=== PATIENT | male | born 1930 | race Caucasian/White ===

== ENCOUNTER → 2017-03-30 | Outpatient (REF) | payer MEDICARE, OTHER ==
[~2017-03-30] MED LIST: LISI20TA PO; METF500T PO; TIMO25OPD OD
[2017-03-30 12:29] LABS: MEAN CORPUSCULAR HEMOGLOBIN 33.3 pg (27.0-33.0); MEAN CORPUSCULAR HGB CONC 33.4 g/dl (32.0-36.5); MEAN CORPUSCULAR VOLUME 99.7 fl (80.0-96.0); RED CELL DISTRIBUTION WIDTH 12.3 % (11.5-14.5); WHITE BLOOD COUNT 7.4 K/mm3 (4.0-10.0)
[2017-03-30 12:40] LABS: ALBUMIN 3.5 GM/DL (3.2-5.2); ALBUMIN/GLOBULIN RATIO 1.25 (1.00-1.93); ALKALINE PHOSPHATASE 55 U/L (45-117); ALT/SGPT 15 U/L (12-78); ANION GAP 9 MEQ/L (8-16); AST/SGOT 12 U/L (15-37); BILIRUBIN,TOTAL 1.2 MG/DL (0.2-1.0); BLOOD UREA NITROGEN 23 MG/DL (7-18); CALCIUM LEVEL 9.1 MG/DL (8.8-10.2); CARBON DIOXIDE LEVEL 28 MEQ/L (21-32); CHLORIDE LEVEL 105 MEQ/L (98-107); CHOLESTEROL LEVEL 188 MG/DL (<200); CREATININE FOR GFR 1.07 MG/DL (0.70-1.30); GLOMERULAR FILTRATION RATE > 60.0 (>35); GLUCOSE, FASTING 132 MG/DL (83-110); POTASSIUM SERUM 3.9 MEQ/L (3.5-5.1); SODIUM LEVEL 142 MEQ/L (136-145); TOTAL PROTEIN 6.3 GM/DL (6.4-8.2); TRIGLYCERIDES LEVEL 122 MG/DL (<150)
== END ==
LOC: M SFHCPLAZ 08:26
PROVIDERS: ATTEND Internal Medicine
DX: Z86.010 Personal history of colon polyps (principal); E11.9 Type 2 diabetes mellitus without complications

== ENCOUNTER → 2017-10-05 | Outpatient (REF) | payer MEDICARE, OTHER ==
[~2017-10-05] MED LIST changes: -METF500T PO; +METF500T13 PO
[2017-10-05 12:33] LABS: ALBUMIN 3.3 GM/DL (3.2-5.2); ALBUMIN/GLOBULIN RATIO 1.03 (1.00-1.93); ALKALINE PHOSPHATASE 63 U/L (45-117); ALT/SGPT 16 U/L (12-78); ANION GAP 5 MEQ/L (8-16); AST/SGOT 12 U/L (7-37); BILIRUBIN,TOTAL 0.9 MG/DL (0.2-1.0); BLOOD UREA NITROGEN 26 MG/DL (7-18); CALCIUM LEVEL 9.4 MG/DL (8.8-10.2); CARBON DIOXIDE LEVEL 32 MEQ/L (21-32); CHLORIDE LEVEL 104 MEQ/L (98-107); CHOLESTEROL LEVEL 175 MG/DL (<200); CREATININE FOR GFR 0.97 MG/DL (0.70-1.30); GLOMERULAR FILTRATION RATE > 60.0 (>35); GLUCOSE, FASTING 137 MG/DL (83-110); MAGNESIUM LEVEL 1.7 MG/DL (1.8-2.4); POTASSIUM SERUM 4.1 MEQ/L (3.5-5.1); SODIUM LEVEL 141 MEQ/L (136-145); TOTAL PROTEIN 6.5 GM/DL (6.4-8.2); TRIGLYCERIDES LEVEL 104 MG/DL (<150)
[2017-10-05 12:36] LABS: MEAN CORPUSCULAR HEMOGLOBIN 32.5 pg (27.0-33.0); MEAN CORPUSCULAR HGB CONC 32.8 g/dl (32.0-36.5); PLATELET COUNT, AUTOMATED 294 10^3/uL (150-450); RED CELL DISTRIBUTION WIDTH 11.8 % (11.5-14.5); WHITE BLOOD COUNT 8.6 10^3/uL (4.0-10.0)
== END ==
LOC: M SFHCPLAZ 09:59
PROVIDERS: ATTEND Internal Medicine
DX: E11.9 Type 2 diabetes mellitus without complications (principal); I10 Essential (primary) hypertension; Z86.010 Personal history of colon polyps

== ENCOUNTER 2018-03-22 15:47 | Inpatient (IN) | payer MEDICARE, OTHER ==
[2018-03-22 16:41] LABS: BASO # 0.1 10^3/uL (0.0-0.2); BASO % 0.4 % (0.0-1.0); EOS # 0.1 10^3/uL (0.0-0.50); EOS % 0.4 % (0.0-3.0); HEMATOCRIT 36.5 % (42.0-52.0); HEMOGLOBIN 12.8 g/dl (13.5-17.5); LYMPH # 0.8 10^3/uL (1.5-4.5); LYMPH % 6.2 % (24.0-44.0); MEAN CORPUSCULAR HEMOGLOBIN 31.7 pg (27.0-33.0); MEAN CORPUSCULAR HGB CONC 35.1 g/dl (32.0-36.5); MEAN CORPUSCULAR VOLUME 90.3 fl (80.0-96.0); MONO # 0.8 10^3/uL (0.0-0.8); MONO % 5.6 % (0.0-5.0); NEUTROPHILS # 11.4 10^3/uL (1.8-7.7); NEUTROPHILS % 83.4 % (36.0-66.0); PLATELET COUNT, AUTOMATED 357 10^3/uL (150-450); RED BLOOD COUNT 4.04 10^6/uL (4.30-6.10); WHITE BLOOD COUNT 13.6 10^3/uL (4.0-10.0)
[2018-03-22 16:53] LABS: PROTHROMBIN TIME 13.3 SECONDS (12.4-14.5)
[2018-03-22 17:11] LABS: ANION GAP 11 MEQ/L (8-16); BLOOD UREA NITROGEN 37 MG/DL (7-18); CALCIUM LEVEL 9.9 MG/DL (8.8-10.2); CARBON DIOXIDE LEVEL 28 MEQ/L (21-32); CHLORIDE LEVEL 95 MEQ/L (98-107); CPK CREATINE PHOSPHOKINASE 59 U/L (39-308); CREATININE FOR GFR 1.57 MG/DL (0.70-1.30); GLOMERULAR FILTRATION RATE 44.6 (>35); GLUCOSE, FASTING 296 MG/DL (70-100); MAGNESIUM LEVEL 1.8 MG/DL (1.8-2.4); POTASSIUM SERUM 4.9 MEQ/L (3.5-5.1); SODIUM LEVEL 134 MEQ/L (136-145); TROPONIN I < 0.02 NG/ML (< 0.10)
[2018-03-22 17:17] LABS: CK-MB VALUE MASS 1.9 NG/ML (<3.6); MB/CK RELATIVE INDEX 3.22 (< OR =4)
[2018-03-22] MEDS: ALBUTEROL SULFATE 2.5 MG/0.5 ML INH NEB SOLN INH (17:36)
[2018-03-22] MEDS: IPRATROPIUM 0.5MG/ALBUTEROL 2.5MG INH SOL UD 3ML (DUONEB)(J7620) NEB (17:36)
[2018-03-22 17:47] LABS: ABG BASE EXCESS 4.2 (-2.0-2.0); ABG HCO3 27.8 MEQ/L (22.0-26.0); ABG O2 SATURATION 97.2 % (95.0-99.0); ABG PARTIAL PRESSURE O2 92.8 mmHg (75.0-100.0); ABG STANDARD HCO3 28.2 MEQ/L (22.0-26.0); ABG pH (ARTERIAL) 7.482 UNITS (7.350-7.450)
[2018-03-22] MEDS ORDERED: ISOVUE-370 76% 100ML VIAL (Q9967) As Ordered (18:00)
[2018-03-22] MEDS: ADACEL/BOOSTRIX VACCINE (DIPHTH/PERTUSS/ACELL/TETANUS)0.5ML SYR (90715) IM (18:33)
[2018-03-22] MEDS: NS 1,000 ML IV ×2 (18:34→22:53)
[2018-03-22 20:38] LABS: LACTIC ACID SEPSIS PROTOCOL 1.7 MMOL/L (0.4-2.0)
[2018-03-22 21:00] LABS: PSA SCREENING 6.94 NG/ML (< 4.0)
[2018-03-22] MEDS ORDERED: ACETAMINOPHEN TAB 650MG DOSE (2X325MG) PO (21:00)
[2018-03-22] MEDS: SENOKOT S TAB PO (21:00)
[2018-03-22] MEDS ORDERED: ONDANSETRON 4MG/2ML VIAL (J2405) IV (21:00)
[2018-03-22 23:19] LABS: BEDSIDE GLUCOSE 223 MG/DL (83-110)
[2018-03-23] MEDS: NS 1,000 ML IV ×2 (01:02→12:19)
[2018-03-23] MEDS ORDERED: GLUCAGON FOR INJ 1 MG VIAL (J1610) SC (01:15)
[2018-03-23] MEDS ORDERED: DEXTROSE 50% 50 ML SYRINGE IV (01:15)
[2018-03-23] MEDS ORDERED: GLUCOSE 4 GM CHEW TABLET PO (01:15)
[2018-03-23 02:31] LABS: CPK CREATINE PHOSPHOKINASE 40 U/L (39-308); TROPONIN I < 0.02 NG/ML (< 0.10)
[2018-03-23 02:32] LABS: CK-MB VALUE MASS 1.6 NG/ML (<3.6)
[2018-03-23 07:02] LABS: BEDSIDE GLUCOSE 213 MG/DL (83-110)
[2018-03-23] MEDS: amLODIPine 5 MG TAB PO (08:01)
[2018-03-23] MEDS: SENOKOT S TAB PO ×2 (08:01→20:45)
[2018-03-23] MEDS: HEPARIN SOD (PORCINE) 5000 UNITS/ML VIAL SC ×2 (08:02→20:49)
[2018-03-23] MEDS: HumaLOG INSULIN (NovoLOG) PER UNIT SC ×4 (08:02→20:45)
[2018-03-23 11:39] LABS: BEDSIDE GLUCOSE 187 MG/DL (83-110)
[2018-03-23 13:54] LABS: HEMOGLOBIN 12.5 g/dl (13.5-17.5); MEAN CORPUSCULAR HGB CONC 33.8 g/dl (32.0-36.5); MEAN CORPUSCULAR VOLUME 94.6 fl (80.0-96.0); PLATELET COUNT, AUTOMATED 327 10^3/uL (150-450); RED BLOOD COUNT 3.91 10^6/uL (4.30-6.10); RED CELL DISTRIBUTION WIDTH 12.5 % (11.5-14.5); WHITE BLOOD COUNT 13.1 10^3/uL (4.0-10.0)
[2018-03-23 14:14] LABS: ANION GAP 8 MEQ/L (8-16); BLOOD UREA NITROGEN 26 MG/DL (7-18); CALCIUM LEVEL 8.8 MG/DL (8.8-10.2); CARBON DIOXIDE LEVEL 30 MEQ/L (21-32); CHLORIDE LEVEL 102 MEQ/L (98-107); CREATININE FOR GFR 1.17 MG/DL (0.70-1.30); GLOMERULAR FILTRATION RATE > 60.0 (>35); GLUCOSE, FASTING 175 MG/DL (70-100); POTASSIUM SERUM 4.2 MEQ/L (3.5-5.1); SODIUM LEVEL 140 MEQ/L (136-145)
[2018-03-23 17:29] LABS: BEDSIDE GLUCOSE 179 MG/DL (83-110)
[2018-03-23 22:23] LABS: BEDSIDE GLUCOSE 186 MG/DL (83-110)
[2018-03-24] MEDS: NS 1,000 ML IV (00:10)
[2018-03-24 06:17] LABS: HEMATOCRIT 30.3 % (42.0-52.0); MEAN CORPUSCULAR HGB CONC 34.3 g/dl (32.0-36.5); MEAN CORPUSCULAR VOLUME 93.2 fl (80.0-96.0); PLATELET COUNT, AUTOMATED 228 10^3/uL (150-450); RED BLOOD COUNT 3.25 10^6/uL (4.30-6.10); RED CELL DISTRIBUTION WIDTH 12.6 % (11.5-14.5); WHITE BLOOD COUNT 8.7 10^3/uL (4.0-10.0)
[2018-03-24 06:28] LABS: ALBUMIN 2.3 GM/DL (3.2-5.2); ANION GAP 6 MEQ/L (8-16); BLOOD UREA NITROGEN 22 MG/DL (7-18); CARBON DIOXIDE LEVEL 28 MEQ/L (21-32); CHLORIDE LEVEL 107 MEQ/L (98-107); CREATININE FOR GFR 0.95 MG/DL (0.70-1.30); GLOMERULAR FILTRATION RATE > 60.0 (>35); GLUCOSE, FASTING 164 MG/DL (70-100); PHOSPHORUS LEVEL 2.8 MG/DL (2.5-4.9); POTASSIUM SERUM 3.7 MEQ/L (3.5-5.1); SODIUM LEVEL 141 MEQ/L (136-145)
[2018-03-24 06:32] LABS: HEMOGLOBIN 10.4 g/dl (13.5-17.5)
[2018-03-24] MEDS: amLODIPine 5 MG TAB PO (08:34)
[2018-03-24] MEDS: HumaLOG INSULIN (NovoLOG) PER UNIT SC ×4 (08:35→20:34)
[2018-03-24] MEDS: HEPARIN SOD (PORCINE) 5000 UNITS/ML VIAL SC ×2 (08:35→20:40)
[2018-03-24] MEDS: SENOKOT S TAB PO ×2 (08:36→20:38)
[2018-03-24] MEDS: LISINOPRIL 20 MG TAB PO (12:24)
[2018-03-24] MEDS: hydroCHLOROthiazide 12.5 MG CAPSULE PO (12:24)
[2018-03-24 12:53] LABS: BEDSIDE GLUCOSE 202 MG/DL (83-110)
[2018-03-24 16:58] LABS: BEDSIDE GLUCOSE 247 MG/DL (83-110)
[2018-03-25 05:54] LABS: HEMATOCRIT 32.1 % (42.0-52.0); HEMOGLOBIN 10.8 g/dl (13.5-17.5); MEAN CORPUSCULAR HEMOGLOBIN 31.4 pg (27.0-33.0); MEAN CORPUSCULAR HGB CONC 33.6 g/dl (32.0-36.5); MEAN CORPUSCULAR VOLUME 93.3 fl (80.0-96.0); PLATELET COUNT, AUTOMATED 216 10^3/uL (150-450); RED BLOOD COUNT 3.44 10^6/uL (4.30-6.10); RED CELL DISTRIBUTION WIDTH 12.5 % (11.5-14.5); WHITE BLOOD COUNT 8.6 10^3/uL (4.0-10.0)
[2018-03-25 06:12] LABS: ALBUMIN 2.3 GM/DL (3.2-5.2); ANION GAP 5 MEQ/L (8-16); BLOOD UREA NITROGEN 17 MG/DL (7-18); CALCIUM LEVEL 8.4 MG/DL (8.8-10.2); CARBON DIOXIDE LEVEL 29 MEQ/L (21-32); CHLORIDE LEVEL 108 MEQ/L (98-107); GLOMERULAR FILTRATION RATE > 60.0 (>35); GLUCOSE, FASTING 138 MG/DL (70-100); PHOSPHORUS LEVEL 2.9 MG/DL (2.5-4.9); POTASSIUM SERUM 3.8 MEQ/L (3.5-5.1); SODIUM LEVEL 142 MEQ/L (136-145)
[2018-03-25] MEDS: HumaLOG INSULIN (NovoLOG) PER UNIT SC ×2 (07:30→12:04)
[2018-03-25] MEDS: LISINOPRIL 10 MG TAB PO (08:28)
[2018-03-25] MEDS: amLODIPine 5 MG TAB PO (08:28)
[2018-03-25] MEDS: SENOKOT S TAB PO (08:28)
[2018-03-25] MEDS: HEPARIN SOD (PORCINE) 5000 UNITS/ML VIAL SC (08:29)
[2018-03-25 11:43] LABS: BEDSIDE GLUCOSE 302 MG/DL (83-110)
[2018-03-25] MEDS: hydroCHLOROthiazide 12.5 MG CAPSULE PO (12:03)
[2018-03-25 14:24] LABS: BEDSIDE GLUCOSE 257 MG/DL (83-110)
[2018-03-27 10:53] LABS: BEDSIDE GLUCOSE 144 MG/DL (83-110)
== END 2018-03-25 15:48 | disposition home or self-care (01) | DRG 684 ==
LOC: M ED 15:47 → M ED INP 20:59 → M MSPAV 22:04
PROVIDERS: Internal Medicine Nephrology
DX: N17.9 Acute kidney failure, unspecified (principal); I10 Essential (primary) hypertension; E04.1 Nontoxic single thyroid nodule; J61 Pneumoconiosis due to asbestos and other mineral fibers; K80.20 Calculus of gallbladder without cholecystitis without obstruction; F43.21 Adjustment disorder with depressed mood; R53.1 Weakness; E11.9 Type 2 diabetes mellitus without complications; Z85.828 Personal history of other malignant neoplasm of skin; Z85.51 Personal history of malignant neoplasm of bladder; Z98.49 Cataract extraction status, unspecified eye; Z87.891 Personal history of nicotine dependence; Z79.899 Other long term (current) drug therapy; Z79.84 Long term (current) use of oral hypoglycemic drugs

== ENCOUNTER → 2018-08-03 | Outpatient (CLI) | payer MEDICARE, OTHER | LOC: M RAD 13:09 | DX: J92.9 Pleural plaque without asbestos (principal) | CPT/HCPCS: 71250 ==

== ENCOUNTER → 2019-01-24 | Outpatient (REF) | payer MEDICARE, OTHER ==
[~2019-01-24] MED LIST changes: +COMB0.2S OD; +LIDO1PAD TOP; +LISI10TA2 PO; +PRED10TA2 PO; +TUMS500C PO; +VITA-121 PO
[2019-01-24 12:48] LABS: HEMATOCRIT 39.9 % (42.0-52.0); HEMOGLOBIN 12.9 g/dl (13.5-17.5); MEAN CORPUSCULAR HEMOGLOBIN 32.6 pg (27.0-33.0); MEAN CORPUSCULAR HGB CONC 32.3 g/dl (32.0-36.5); MEAN CORPUSCULAR VOLUME 100.8 fl (80.0-96.0); PLATELET COUNT, AUTOMATED 244 10^3/uL (150-450); RED BLOOD COUNT 3.96 10^6/uL (4.30-6.10); WHITE BLOOD COUNT 7.7 10^3/uL (4.0-10.0)
[2019-01-24 13:23] LABS: ALBUMIN 3.3 GM/DL (3.2-5.2); ALT/SGPT 14 U/L (12-78); BILIRUBIN,TOTAL 1.2 MG/DL (0.2-1.0); BLOOD UREA NITROGEN 26 MG/DL (7-18); CALCIUM LEVEL 9.1 MG/DL (8.8-10.2); CARBON DIOXIDE LEVEL 28 MEQ/L (21-32); CHLORIDE LEVEL 104 MEQ/L (98-107); CREATININE FOR GFR 1.01 MG/DL (0.70-1.30); GLOMERULAR FILTRATION RATE > 60.0 (>35); GLUCOSE, FASTING 150 MG/DL (70-100); MAGNESIUM LEVEL 1.7 MG/DL (1.8-2.4); POTASSIUM SERUM 4.3 MEQ/L (3.5-5.1); SODIUM LEVEL 140 MEQ/L (136-145); TOTAL PROTEIN 6.3 GM/DL (6.4-8.2)
[2019-01-24 14:12] LABS: CREATININE, URINE 95.8 MG/DL; MAU/CREAT RATIO 117.9 MCG/MG (0.0-30.0)
[2019-01-24 15:14] LABS: HEMOGLOBIN A1c 7.9 %
== END ==
LOC: M SFHCPLAZ 10:26
PROVIDERS: ATTEND Internal Medicine
DX: Z85.51 Personal history of malignant neoplasm of bladder (principal); I10 Essential (primary) hypertension; E11.9 Type 2 diabetes mellitus without complications

== ENCOUNTER 2019-05-19 10:03 | Inpatient (IN) | payer MEDICARE, OTHER ==
[~2019-05-19] VITALS: Ht 167.6 cm; Wt 64.1 kg
[~2019-05-19 10:03] MED LIST changes: +D3 H10002 PO; +PREVNAR 13 VACCINE SYRINGE (CPT CODE:90670) IM SCH; +TIMO0.2525 OD; -TIMO25OPD OD
[2019-05-19] MEDS ORDERED: ERYTGEL TOP (10:41)
[2019-05-19 11:25] LABS: BASO % 0.1 % (0.0-1.0); EOS % 0.3 % (0.0-3.0); HEMOGLOBIN 11.9 g/dl (13.5-17.5); LYMPH # 0.5 10^3/uL (1.5-4.5); LYMPH % 3.8 % (24.0-44.0); MEAN CORPUSCULAR HEMOGLOBIN 33.3 pg (27.0-33.0); MEAN CORPUSCULAR HGB CONC 33.1 g/dl (32.0-36.5); MEAN CORPUSCULAR VOLUME 100.8 fl (80.0-96.0); MONO % 8.6 % (0.0-5.0); NEUTROPHILS # 10.4 10^3/uL (1.8-7.7); NEUTROPHILS % 86.8 % (36.0-66.0); PLATELET COUNT, AUTOMATED 216 10^3/uL (150-450); RED BLOOD COUNT 3.57 10^6/uL (4.30-6.10)
[2019-05-19 11:36] LABS: INR 1.16; PROTHROMBIN TIME 14.5 SECONDS (11.8-14.0)
[2019-05-19 11:37] LABS: PARTIAL THROMBOPLASTIN TIME 29.2 SECONDS (25.0-38.4)
[2019-05-19 11:57] LABS: BLOOD UREA NITROGEN 27 MG/DL (7-18); CALCIUM LEVEL 8.8 MG/DL (8.8-10.2); CARBON DIOXIDE LEVEL 28 MEQ/L (21-32); CHLORIDE LEVEL 104 MEQ/L (98-107); CK-MB VALUE MASS < 1.0 NG/ML (<3.6); CPK CREATINE PHOSPHOKINASE 158 U/L (39-308); CREATININE FOR GFR 1.28 MG/DL (0.70-1.30); GLOMERULAR FILTRATION RATE 56.3 (>35); GLUCOSE, FASTING 304 MG/DL (70-100); MB/CK RELATIVE INDEX 0.63 (< OR =4); NT-PRO BNP 725 PG/ML (<450); POTASSIUM SERUM 3.6 MEQ/L (3.5-5.1); SODIUM LEVEL 140 MEQ/L (136-145); TROPONIN I < 0.02 NG/ML (< 0.10)
--- NOTE | 2019-05-19 12:23 | REP ---
PORTABLE CHEST X-RAY: Single view. HISTORY: Shortness of breath. COMPARISON CHEST X-RAY: March 22, 2018. FINDINGS: There are multiple old healed rib fractures on the right. The thoracic aorta is calcific and tortuous. The heart is not enlarged. There is some chronic pleural thickening at the upper lung zone on the left. There is linear plate-like atelectasis in the lateral pleural angle on the left. Some minimal similar linear plate-like atelectasis seen in the right base. Hazy opacity in the right upper chest may reflect an infiltrate. No pleural effusion or pulmonary edema seen. IMPRESSION: Hazy opacity in the right mid lung zone may reflect infiltrate. Bibasilar plate-like atelectasis. Chronic changes. Electronically Signed by Tejas Aparicio MD 05/19/2019 01:05 P
--- NOTE | 2019-05-19 12:47 | REP ---
Clinical: Infiltrate. Technique: Axial noncontrast images from the thoracic inlet to the upper abdomen with coronal and sagittal re-formations. Comparison: 08/03/2018. 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 There is an area of consolidation along the subpleural right upper lobe measuring 4 cm maximal diameter as well as someone linear/irregular presumed atelectasis in the bilateral bases (right greater than left). No effusion. Mediastinal lymph nodes are nonspecific in appearance and size. No pneumothorax. Atherosclerotic changes to the thoracic aorta and coronary arteries. Musculoskeletal structures demonstrate age-related changes. Upper abdomen demonstrates cholelithiasis with normal bilateral adrenal glands. Impression: 1. 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 2. Area of consolidation along the periphery of the right upper lobe and mild bibasilar atelectasis. Findings require follow-up to resolution as differential diagnosis cannot exclude malignancy. Electronically Signed by Joshua Gutierrez MD 05/19/2019 12:39 P
[2019-05-19] MEDS ORDERED: ERYT1OIN26 OU (13:05)
[2019-05-19] MEDS ORDERED: LISI10TA2 PO (13:05)
[2019-05-19] MEDS ORDERED: DEXTROSE 50% 50 ML SYRINGE IV PRN (13:15)
[2019-05-19] MEDS ORDERED: AZITHROMYCIN INJ 500 MG, VIAL MATE ADAPTER 1 EACH in D5W 250 ML IV ONE (13:15)
[2019-05-19] MEDS ORDERED: GLUCAGON FOR INJ 1 MG VIAL (J1610) SC PRN (13:15)
[2019-05-19] MEDS ORDERED: FUROSEMIDE 20 MG/2 ML VIAL (J1940) IV ONE (13:15)
[2019-05-19] MEDS ORDERED: cefTRIAXone SOD 2 GM in D5W MINI-BAG PLUS 50 ML IV ONE (13:15)
[2019-05-19] MEDS ORDERED: GLUCOSE 4 GM CHEW TABLET PO PRN (13:15)
[2019-05-19 16:14] VITALS: BP 142/86
--- NOTE | 2019-05-19 16:44 | HPEPDOC ---
General Date of Admission May 19, 2019 at 13:05 Date of Service: May 19, 2019 Chief Complaint The patient is a 89-year-old male admitted with a reason for visit of Pneumonia. 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 The patient states that he has been feeling increasingly weak and has been unable to get out of bed without the help of his . He also notes chills, but no recorded fevers. He denies any complaints of nausea, vomiting, chest pain, palpitations, abdominal pain, or any nausea/vomiting/diarrhea. In the ER, a CT scan of the chest was notable for a right upper/middle lobe infiltrate. The patient will be admitted under the hospitalist service for community acquired pneumonia. Home Medications Scheduled Brimonidine Tartrate/Timolol (Combigan 0.2%-0.5% Eye Drops) 1 Shahnaz Shahnaz, 1 DROP OD BID, (Reported) PATIENT STATE HE INSTILL IN THE LEFT EYE IF NEEDED Calcium Carbonate (Tums) 500 Mg Chw, 1,000 MG PO QHS, (Reported) Cholecalciferol (Vitamin D3) (Vitamin D3) 1,000 Unit Capsule, 1,000 UNIT PO DAILY, (Reported) Erythromycin Base (Erythromycin) 1 Gm Oint...g., 1 DOSE OU QHS, (Reported) Lisinopril/Hydrochlorothiazide (Lisinopril-Hctz 10-12.5 mg Tab) 1 Each Tablet, 1 TAB PO DAILY, (Reported) Metformin HCl (Metformin HCl) 500 Mg Tab, 1,000 MG PO BID, (Reported) TAKES WITH BREAKFAST AND DINNER Allergies Coded Allergies: No Known Allergies (Unverified , 05/15/19) Past Medical History Medical History As noted in HPI. Surgical History BASAL CELL CANCER EXCISION-COMMENT: RIGHT NASOLABIAL FOLD 02/1998 BLADDER TUMOR REMOVAL VIA CYSTOSCOPY-COMMENT: 1.25 CM, DR JAUREGUI 08/2001 COLONOSCOPY 10/2009 CATARACT EXTRACTION OS 02/2010 BASAL CELL CANCER EXCISION-COMMENT: LEFT NASOLABIAL FOLD 04/2012 COLONOSCOPY 05/2012 CATARACT EXTRACTION OD 04/2014 COLONOSCOPY 01/2016 MOST RECENT CYSTOSCOPY 07/2017 Social History * Smoker: former Smoker (smoked 1 pack per day of tobacco for 30+ years, quit in 1985.) Alcohol: Denies Drugs: denies Lives with at home. Functionally independent at baseline. Retired. Review of Systems Other systems 10 point review of systems negative unless otherwise specified in HPI. Physical Examination General Exam: Positive: Alert, Cooperative, No Acute Distress ENT Exam: Positive: Atraumatic; Negative: Mucous membr. moist/pink (dry mucous membranes) Neck Exam: Negative: JVD Chest Exam: Positive: Diminished; Negative: Rales Heart Exam: Positive: Rate Normal, Normal S1, Normal S2 Abdomen Exam: Positive: Soft; Negative: Tenderness Extremity Exam: Positive: Edema (trace pitting edema in the lower extremities bilaterally.); Negative: Tenderness Psych Exam: Positive: Oriented x 3 Vital Signs Vital Signs Date Time Temp Pulse Resp B/P (MAP) Pulse Ox O2 Delivery O2 Flow Rate FiO2 05/19/19 15:00 98.3 80 18 165/91 (115) 94 Room Air Laboratory Data Labs 24H Laboratory Tests 2 05/19/19 11:04: Immature Granulocyte % (Auto) 0.4, White Blood Count 12.0H, Red Blood Count 3.57L, Hemoglobin 11.9L, Hematocrit 36.0L, Mean Corpuscular Volume 100.8H, Mean Corpuscular Hemoglobin 33.3H, Mean Corpuscular Hemoglobin Concent 33.1, Red Cell Distribution Width 12.2, Platelet Count 216, Neutrophils (%) (Auto) 86.8H, Lymphocytes (%) (Auto) 3.8L, Monocytes (%) (Auto) 8.6H, Eosinophils (%) (Auto) 0.3, Basophils (%) (Auto) 0.1, Neutrophils # (Auto) 10.4H, Lymphocytes # (Auto) 0.5L, Monocytes # (Auto) 1.0H, Eosinophils # (Auto) 0.0, Basophils # (Auto) 0.0, Nucleated Red Blood Cells % (auto) 0.0, Prothrombin Time 14.5H, Prothromb Time International Ratio 1.16, Activated Partial Thromboplast Time 29.2, Anion Gap 8, Glomerular Filtration Rate 56.3, Blood Urea Nitrogen 27H, Creatinine 1.28, Sodium Level 140, Potassium Level 3.6, Chloride Level 104, Carbon Dioxide Level 28, Calcium Level 8.8, Total Creatine Kinase 158, Creatine Kinase MB < 1.0, Creatine Kinase MB Relative Index 0.63, Troponin I < 0.02, KE-Fsb-Q-Type [place] riuretic Peptide 725H 05/19/19 14:40: Urine Color YELLOW, Urine Appearance CLEAR, Urine pH 5.0, Urine Specific [place] 1.012, Urine Protein 1+H, Urine Glucose (UA) 3+H, Urine Ketones NEGATIVE, Urine Blood 2+H, Urine Nitrite NEGATIVE, Urine Bilirubin NEGATIVE, Urine Urobilinogen 0.2, Urine Leukocyte Esterase NEGATIVE, Urine WBC (Auto) 4H, Urine RBC (Auto) 9H, Urine Hyaline Casts (Auto) 0, Urine Bacteria (Auto) NEGATIVE, Urine Squamous Epithelial Cells 0, Urine Sperm (Auto) 05/19/19 16:19: Urine Color STRAW, Urine Appearance CLEAR, Urine pH 5.0, Urine Specific [place] 1.005, Urine Protein NEGATIVE, Urine Glucose (UA) 3+H, Urine Ketones NEGATIVE, Urine Blood 2+H, Urine Nitrite NEGATIVE, Urine Bilirubin NEGATIVE, Urine Urobilinogen 0.2, Urine Leukocyte Esterase NEGATIVE, Urine WBC (Auto) 2, Urine RBC (Auto) 112H, Urine Hyaline Casts (Auto) 0, Urine Bacteria (Auto) NEGATIVE, Urine Squamous Epithelial Cells 0, Urine Sperm (Auto) , Urine Mucus (Auto) SMALL CBC/BMP Laboratory Tests 05/19/19 11:04 Red Blood Count 3.57 L, Mean Corpuscular Volume 100.8 H, Mean Corpuscular Hemoglobin 33.3 H, Mean Corpuscular Hemoglobin Concent 33.1, Red Cell Distribution Width 12.2, Neutrophils (%) (Auto) 86.8 H, Lymphocytes (%) (Auto) 3.8 L, Monocytes (%) (Auto) 8.6 H, Eosinophils (%) (Auto) 0.3, Basophils (%) (Auto) 0.1, Neutrophils # (Auto) 10.4 H, Lymphocytes # (Auto) 0.5 L, Monocytes # (Auto) 1.0 H, Eosinophils # (Auto) 0.0, Basophils # (Auto) 0.0, Calcium Level 8.8, Total Creatine Kinase 158 Microbiology Microbiology 05/19/19 Blood Culture, Received Pending 05/19/19 Blood Culture, Received Pending 05/19/19 Respiratory Virus Panel (PCR) (JUAN CARLOS), Received Pending 05/19/19 Gram Stain, Received Pending 05/19/19 Sputum Culture, Received Pending Plan / VTE VTE Prophylaxis Ordered?: Yes Plan Plan Non-productive cough, Generalized Weakness 2/[address] Chest notable for area of consolidation in the right upper/middle lobe WBC elevated at 12K Sputum Culture, Respiratory Panel, and Procalcitonin level ordered Rocephin and Azithromycin ordered We will cont to monitor the patient's respiratory status Hematuria in a Pt with History of Malignant neoplasm of bladder status post re moval via cystoscopy in August/2001 Patient noted to have hematuria in the ER--urinalysis ordered Urine cytology sent We will follow-up the results Generalized Deconditioning 2/2 Above PT/OT ordered for functional optimization Diabetes mellitus Hemoglobin A1c from January 2019 noted to be 7.9% Carb consistent diet Insulin sliding scale ordered Hypertension, stable History of Basal cell cancer excision of the left and right nasolabial fold Follow up as outpatient DVT Prophylaxis SCDs/TEDs (No AC 2/2 Hematuria) I did discuss possible recurrence of underlying malignancy given the patient's h ematuria in the ER, overall weakness, and decreased appetite which he endorses has been present over the last several weeks. The patient and his , who is at the bedside has verbalized understanding of the same. At this time, we will treat the patient's acute infection, and functionally optimize Mr. Melendez with physical therapy. We will await urine cytology. However, the patient has been counseled to follow-up with his primary care physician and urologist for further workup and evaluation/monitoring as per USPSTF screening guidelines. Code Status discussed, patient would like more time to think this over. Full Code for now. MARYJANE BOSS MD May 19, 2019 16:44
[2019-05-19] MEDS: HumaLOG INSULIN (NovoLOG) PER UNIT SC SCH ×2 (18:14→20:18)
[2019-05-19 20:00] VITALS: BP 121/66
[2019-05-19] MEDS: CALCIUM CARBONATE 500 MG CHEW U/D PO SCH (20:18)
[2019-05-19] MEDS: ACETAMINOPHEN TAB 650MG DOSE (2X325MG) PO PRN (20:55)
[2019-05-19] MEDS ORDERED: HEPARIN SOD (PORCINE) 5000 UNITS/ML VIAL SC SCH (21:00)
[2019-05-20] VITALS: BP 124/59
[2019-05-20 04:00] VITALS: BP 130/60
[2019-05-20 04:58] LABS: HEMATOCRIT 33.8 % (42.0-52.0); HEMOGLOBIN 11.4 g/dl (13.5-17.5); MEAN CORPUSCULAR HEMOGLOBIN 32.9 pg (27.0-33.0); MEAN CORPUSCULAR HGB CONC 33.7 g/dl (32.0-36.5); MEAN CORPUSCULAR VOLUME 97.4 fl (80.0-96.0); PLATELET COUNT, AUTOMATED 209 10^3/uL (150-450); RED BLOOD COUNT 3.47 10^6/uL (4.30-6.10); WHITE BLOOD COUNT 10.8 10^3/uL (4.0-10.0)
[2019-05-20 05:16] LABS: BLOOD UREA NITROGEN 28 MG/DL (7-18); CALCIUM LEVEL 8.9 MG/DL (8.8-10.2); CARBON DIOXIDE LEVEL 28 MEQ/L (21-32); CHLORIDE LEVEL 102 MEQ/L (98-107); CREATININE FOR GFR 1.16 MG/DL (0.70-1.30); GLOMERULAR FILTRATION RATE > 60.0 (>35); GLUCOSE, FASTING 181 MG/DL (70-100); POTASSIUM SERUM 3.3 MEQ/L (3.5-5.1); SODIUM LEVEL 140 MEQ/L (136-145)
[2019-05-20] MEDS ORDERED: POTASSIUM CHLORIDE 10 MEQ SR TABLET PO ONE (07:30)
[2019-05-20 08:00] VITALS: BP 184/79
[2019-05-20] MEDS: HumaLOG INSULIN (NovoLOG) PER UNIT SC SCH ×4 (08:17→20:47)
[2019-05-20] MEDS: VITAMIN D 1,000 INTERNATIONAL UNITS TABLET PO SCH (08:17)
[2019-05-20] MEDS: hydroCHLOROthiazide 12.5 MG CAPSULE PO SCH (08:17)
[2019-05-20] MEDS: LISINOPRIL 10 MG TAB PO SCH (08:21)
--- NOTE | 2019-05-20 09:35 | ECGEPIP ---
[facility] - ED Test Date: 2019-05-19 Pat Name: MILDRED SANDS Department: Room: [place] [address] Gender: Male Prepleater: ROBERT : 1930 Requested By: Sean Faith Order Number: [id number] Reading MD: Jory Bryant Measurements Intervals [place] Rate: 94 P: 31 ME: 246 QRS: 11 QRSD: 92 T: 16 QT: 343 QTc: 431 Interpretive Statements SINUS RHYTHM WITH FIRST DEGREE AV BLOCK WITH OCCASIONAL SUPRAVENTRICULAR ME PREMATURE COMPLEXES NSTTW abnormalities DECREASED RATE 03/22/18 Electronically Signed on 05-20-2019 9:35:35 EDT by Jory Bryant
[2019-05-20] MEDS: ACETAMINOPHEN TAB 650MG DOSE (2X325MG) PO PRN (10:52)
[2019-05-20 11:45] VITALS: BP 151/78
[2019-05-20] MEDS: AZITHROMYCIN INJ 500 MG, VIAL MATE ADAPTER 1 EACH in D5W 250 ML IV SCH (12:45)
--- NOTE | 2019-05-20 12:53 | IPNPDOC ---
Subjective Date Seen The patient was seen on 05/20/19. Subjective Chief Complaint/HPI Patient seen and examined at the bedside. Reports that he is feeling better this morning. Denies any more episodes of hematuria. States that his respiratory status is also improved, and denies any cough or shortness of breath. Objective Physical Examination General Exam: Positive: Alert, Cooperative, No Acute Distress ENT Exam: Positive: Atraumatic, Mucous membr. moist/pink Neck Exam: Negative: JVD Chest Exam: Positive: Diminished; Negative: Rales Heart Exam: Positive: Rate Normal, Normal S1, Normal S2 Abdomen Exam: Positive: Soft; Negative: Tenderness Extremity Exam: Positive: Edema (trace pitting edema in the lower extremities bilaterally.); Negative: Tenderness Psych Exam: Positive: Oriented x 3 Assessment /Plan Plan/VTE VTE Prophylaxis Ordered?: Yes Plan Non-productive cough, Generalized Weakness 2/[address] Chest notable for area of consolidation in the right upper/middle lobe on admission WBC downtrending this AM Sputum Culture pending, Respiratory Panel unrevealing, and Procalcitonin level pending Cont Rocephin and Azithromycin Patient reports improvement of his overall condition today We will cont to monitor the patient's respiratory status Hematuria in a Pt with History of Malignant neoplasm of bladder status post removal via cystoscopy in August/2001 Patient noted to have hematuria in the ER--urinalysis ordered Urine cytology sent We will follow-up the results We will order a CT Abd/Pel in the next 24-48hrs to further evaluate Generalized Deconditioning 2/2 Above PT/OT ordered for functional optimization Diabetes mellitus Hemoglobin A1c from January 2019 noted to be 7.9% Carb consistent diet Insulin sliding scale ordered Hypertension, stable History of Basal cell cancer excision of the left nasolabial fold in 04/2012 Follow up as outpatient DVT Prophylaxis SCDs/TEDs (No AC 2/2 Hematuria) VS, I&O, 24H, Fishbone Vital Signs/I&O Vital Signs Date Time Temp Pulse Resp B/P (MAP) Pulse Ox O2 Delivery O2 Flow Rate FiO2 05/20/19 11:45 98.6 93 18 151/78 (102) 92 05/19/19 15:00 Room Air I&O- Last 24 Hours up to 6 AM 05/20/19 06:00 Intake Total 220 ml Output Total 875 ml Balance -655 ml Laboratory Data 24H LABS Laboratory Tests 2 05/19/19 14:40: Urine Color YELLOW, Urine Appearance CLEAR, Urine pH 5.0, Urine Specific [place] 1.012, Urine Protein 1+H, Urine Glucose (UA) 3+H, Urine Ketones NEGATIVE, Urine Blood 2+H, Urine Nitrite NEGATIVE, Urine Bilirubin NEGATIVE, Urine Urobilinogen 0.2, Urine Leukocyte Esterase NEGATIVE, Urine WBC (Auto) 4H, Urine RBC (Auto) 9 H, Urine Hyaline Casts (Auto) 0, Urine Bacteria (Auto) NEGATIVE, Urine Squamous Epithelial Cells 0, Urine Sperm (Auto) 05/19/19 16:19: Urine Color STRAW, Urine Appearance CLEAR, Urine pH 5.0, Urine Specific [place] 1.005, Urine Protein NEGATIVE, Urine Glucose (UA) 3+H, Urine Ketones NEGATIVE, Urine Blood 2+H, Urine Nitrite NEGATIVE, Urine Bilirubin NEGATIVE, Urine Urobilinogen 0.2, Urine Leukocyte Esterase NEGATIVE, Urine WBC (Auto) 2, Urine RBC (Auto) 112H, Urine Hyaline Casts (Auto) 0, Urine Bacteria (Auto) NEGATIVE, Urine Squamous Epithelial Cells 0, Urine Sperm (Auto) , Urine Mucus (Auto) SMALL 05/19/19 17:55: Bedside Glucose (Misc Panel) 263H 05/19/19 20:10: Bedside Glucose (Misc Panel) 272H 05/20/19 04:37: Nucleated Red Blood Cells % (auto) 0.0, Anion Gap 10, Glomerular Filtration Rate > 60.0, Blood Urea Nitrogen 28H, Creatinine 1.16, Sodium Level 140, Potassium Level 3.3L, Chloride Level 102, Carbon Dioxide Level 28, Calcium Level 8.9 05/20/19 12:07: Bedside Glucose (Misc Panel) 221H CBC/BMP Laboratory Tests 05/20/19 04:37 Red Blood Count 3.47 L, Mean Corpuscular Volume 97.4 H, Mean Corpuscular Hemoglobin 32.9, Mean Corpuscular Hemoglobin Concent 33.7, Red Cell Distribution Width 12.3, Calcium Level 8.9 Microbiology Microbiology 05/19/19 Blood Culture - Preliminary, Resulted No growth after 24 hours . All specim... 05/19/19 Blood Culture - Preliminary, Resulted No growth after 24 hours . All specim... 05/19/19 Respiratory Virus Panel (PCR) (JUAN CARLOS) - Final, Complete 05/19/19 Gram Stain - Final, Resulted 05/19/19 Sputum Culture, Resulted Pending MARYJANE BOSS MD May 20, 2019 12:53
[2019-05-20 14:00] VITALS: BP 152/77
--- NOTE | 2019-05-20 15:02 | ECHO ---
DATE OF PROCEDURE: 05/19/2019 DATE OF : 1930 AGE: 89 GENDER: Male HEIGHT: 66 inches WEIGHT: 147 pounds BODY SURFACE AREA: 1.75 m2 INPATIENT: Intensive care unit (ICU) Room 3204 REFERRING PHYSICIAN: Dr. Malcolm Medrano INDICATION: Edema. MEASUREMENTS: 2-D Measurements: RV: 3.8 cm LV: 4.3 cm Septum: 1.2 cm Posterior wall: 1.2 cm Aortic root: 3.6 cm LA: 3.7 cm LVEF: 75% Doppler Measurements: AV: 1.27 m/s LVOT: 0.95 m/s LVOT diameter: 2.2 cm MV: E 64, A 113, EA ratio 0.7 Early mitral deceleration time: 246 ms E prime: 7.1 A prime: 8.4 E/E prime ratio: 9 PCWP: 12.6 mmHg PV: 0.7 m/s Pulmonary artery acceleration time: 99 ms RVSP: 37 mmHg IVC: 2.1 cm COMMENTS: Normal sinus rhythm without intraventricular conduction disturbance. Technically challenging study in light of the patient's body habitus but diagnostically useful information was still obtained. M-mode and two-dimensional echocardiography was performed with pulsed, continuous wave, color flow and tissue Doppler studies. Borderline concentric left ventricle hypertrophy with hyperkinetic wall motion. Left atrium upper limits of normal in size with Doppler evidence of impairment of LV diastolic function but current estimated mean left the atrial pressure upper limits of normal. Normal right heart chamber sizes and motion with Doppler evidence of mild pulmonary hypertension. IVC size upper limits of normal with normal respiratory collapse against an elevated central venous pressure. Aortic valvular sclerosis without functional abnormality. Normal aortic root size. Mild mitral annular thickening without functional valvular abnormality. Normal appearing tricuspid valve with very mild insufficiency. No apparent intracardiac mass or pericardial effusion. MTDD
[2019-05-20] MEDS: cefTRIAXone SOD 1 GM in D5W MINI-BAG PLUS 50 ML IV SCH (15:05)
[2019-05-20] MEDS: CALCIUM CARBONATE 500 MG CHEW U/D PO SCH (20:51)
[2019-05-20 22:00] VITALS: BP 161/81
[2019-05-21 06:00] VITALS: BP 158/74
[2019-05-21 06:12] LABS: HEMATOCRIT 32.4 % (42.0-52.0); HEMOGLOBIN 10.7 g/dl (13.5-17.5); MEAN CORPUSCULAR HEMOGLOBIN 32.2 pg (27.0-33.0); MEAN CORPUSCULAR VOLUME 97.6 fl (80.0-96.0); PLATELET COUNT, AUTOMATED 214 10^3/uL (150-450); RED BLOOD COUNT 3.32 10^6/uL (4.30-6.10); WHITE BLOOD COUNT 10.3 10^3/uL (4.0-10.0)
[2019-05-21 06:33] LABS: CALCIUM LEVEL 9.1 MG/DL (8.8-10.2); CREATININE FOR GFR 1.24 MG/DL (0.70-1.30); GLOMERULAR FILTRATION RATE 58.4 (>35); POTASSIUM SERUM 3.4 MEQ/L (3.5-5.1)
[2019-05-21] MEDS: hydroCHLOROthiazide 12.5 MG CAPSULE PO SCH (07:37)
[2019-05-21] MEDS: HumaLOG INSULIN (NovoLOG) PER UNIT SC SCH ×4 (07:37→20:35)
[2019-05-21] MEDS: VITAMIN D 1,000 INTERNATIONAL UNITS TABLET PO SCH (07:38)
[2019-05-21] MEDS: LISINOPRIL 10 MG TAB PO SCH (07:38)
[2019-05-21] MEDS ORDERED: POTASSIUM CHLORIDE 10 MEQ SR TABLET PO ONE (09:00)
--- NOTE | 2019-05-21 12:00 | IPNPDOC ---
Subjective Date Seen The patient was seen on 05/21/19. Subjective Chief Complaint/HPI Patient seen and examined at the bedside. Denies any more hematuria. Reports that his respiratory status is improving. Objective Physical Examination General Exam: Positive: Alert, Cooperative, No Acute Distress ENT Exam: Positive: Atraumatic, Mucous membr. moist/pink Neck Exam: Negative: JVD Chest Exam: Positive: Diminished; Negative: Rales Heart Exam: Positive: Rate Normal, Normal S1, Normal S2 Abdomen Exam: Positive: Soft; Negative: Tenderness Extremity Exam: Positive: Edema (trace pitting edema in the lower extremities bilaterally.); Negative: Tenderness Psych Exam: Positive: Oriented x 3 Assessment /Plan Plan/VTE VTE Prophylaxis Ordered?: Yes Plan Non-productive cough, Generalized Weakness 2/[address] Chest notable for area of consolidation in the right upper/middle lobe on admission WBC downtrending this AM Sputum Culture noted, Respiratory Panel unrevealing, and Procalcitonin level positive Cont Rocephin and Azithromycin Patient reports improvement of his overall condition today We will cont to monitor the patient's respiratory status Hematuria in a Pt with History of Malignant neoplasm of bladder status post removal via cystoscopy in August/2001 Patient noted to have hematuria in the ER--urinalysis ordered Urine cytology sent CT Abd/Pel ordered We will follow up with the results and discuss them with Urology Generalized Deconditioning 2/2 Above PT/OT ordered for functional optimization Diabetes mellitus Hemoglobin A1c from January 2019 noted to be 7.9% Carb consistent diet Insulin sliding scale ordered Hypertension, stable History of Basal cell cancer excision of the left nasolabial fold in 04/2012 Follow up as outpatient DVT Prophylaxis SCDs/TEDs (No AC 2/2 Hematuria) Disposition-pending clinical improvement, CT abdomen/pelvis, and urology follow- up. VS, I&O, 24H, Fishbone Vital Signs/I&O Vital Signs Date Time Temp Pulse Resp B/P (MAP) Pulse Ox O2 Delivery O2 Flow Rate FiO2 05/21/19 07:38 163/84 05/21/19 06:00 97.8 80 18 98 05/19/19 15:00 Room Air I&O- Last 24 Hours up to 6 AM 05/21/19 06:00 Intake Total 1510 ml Output Total 685 ml Balance 825 ml Laboratory Data 24H LABS Laboratory Tests 2 05/20/19 12:07: Bedside Glucose (Misc Panel) 221H 05/20/19 19:51: Bedside Glucose (Misc Panel) 131H 05/21/19 05:44: Nucleated Red Blood Cells % (auto) 0.0, Anion Gap 8, Glomerular Filtration Rate 58.4, Blood Urea Nitrogen 26H, Creatinine 1.24, Sodium Level 137, Potassium Level 3.4L, Chloride Level 103, Carbon Dioxide Level 26, Calcium Level 9.1 05/21/19 11:44: Bedside Glucose (Misc Panel) 197H CBC/BMP Laboratory Tests 05/21/19 05:44 Red Blood Count 3.32 L, Mean Corpuscular Volume 97.6 H, Mean Corpuscular Hemoglobin 32.2, Mean Corpuscular Hemoglobin Concent 33.0, Red Cell Distribution Width 12.2, Calcium Level 9.1 Microbiology Microbiology 05/19/19 Blood Culture - Preliminary, Resulted No growth after 24 hours . All specim... 05/19/19 Blood Culture - Preliminary, Resulted No growth after 24 hours . All specim... 05/19/19 Respiratory Virus Panel (PCR) (JUAN CARLOS) - Final, Complete 05/19/19 Gram Stain - Final, Complete 05/19/19 Sputum Culture - Final, Complete Yeast Like Organism MARYJANE BOSS MD May 21, 2019 11:59
[2019-05-21] MEDS ORDERED: ISOVUE-370 76% 100ML VIAL (Q9967) As Ordered ONE (12:01)
--- NOTE | 2019-05-21 12:39 | REP ---
Clinical: Hematuria. Technique: Axial contrast enhanced images from the lung bases to the pubic symphysis with coronal and sagittal re-formations using 100 ml Isovue 370 intravenous contrast material. Findings: Lung bases demonstrate scattered calcified pleural plaques consistent with asbestosis and chronic interstitial changes with trace basilar atelectasis. Fatty infiltration to the liver. Spleen, pancreas, bilateral adrenal glands and kidneys are essentially normal. Mild perinephric stranding appears chronic. Small right renal hypodensity suggesting cyst. Cholelithiasis noted without acute cholecystitis. The enteric system demonstrates diffuse diverticulosis without acute diverticulitis. Normal terminal ileum and appendix identified in the right lower quadrant. Obstruction or acute inflammatory process. Pelvis demonstrates enlarged heterogeneous prostate gland measuring 6.3 cm maximal diameter with mass effect on the base of the bladder. The bladder is grossly unremarkable. No ascites. No free air. No adenopathy. Atherosclerotic changes to the aorta without aneurysm or dissection. Musculoskeletal structures demonstrate degenerative changes without focal osseous abnormality. Impression: 1. Cholelithiasis. 2. Fatty infiltration to the liver without focal hepatic lesion. 3. Small renal hypodensities likely representing cysts. 4. Diverticulosis. 5. Significantly enlarged prostate gland measuring 6.3 cm maximal diameter with heterogeneous enhancement. 6. No ascites, focal inflammatory stranding, or adenopathy. 7. Evidence for asbestosis with mild bibasilar atelectasis. Electronically Signed by Joshua Gutierrez MD 05/21/2019 12:31 P
[2019-05-21] MEDS: SENNA 8.6 MG TAB (SENOKOT) PO SCH ×2 (13:06→20:01)
[2019-05-21] MEDS: AZITHROMYCIN INJ 500 MG, VIAL MATE ADAPTER 1 EACH in D5W 250 ML IV SCH (13:10)
[2019-05-21 14:00] VITALS: BP 135/64
[2019-05-21] MEDS: cefTRIAXone SOD 1 GM in D5W MINI-BAG PLUS 50 ML IV SCH (15:39)
[2019-05-21] MEDS: CALCIUM CARBONATE 500 MG CHEW U/D PO SCH (20:01)
[2019-05-21 22:00] VITALS: BP 133/66
[2019-05-22 06:00] VITALS: BP 135/68
[2019-05-22 06:20] LABS: HEMATOCRIT 33.5 % (42.0-52.0); HEMOGLOBIN 11.3 g/dl (13.5-17.5); MEAN CORPUSCULAR HEMOGLOBIN 33.3 pg (27.0-33.0); MEAN CORPUSCULAR HGB CONC 33.7 g/dl (32.0-36.5); MEAN CORPUSCULAR VOLUME 98.8 fl (80.0-96.0); PLATELET COUNT, AUTOMATED 236 10^3/uL (150-450); RED BLOOD COUNT 3.39 10^6/uL (4.30-6.10); WHITE BLOOD COUNT 9.5 10^3/uL (4.0-10.0)
[2019-05-22 06:39] LABS: BLOOD UREA NITROGEN 28 MG/DL (7-18); CALCIUM LEVEL 8.8 MG/DL (8.8-10.2); CARBON DIOXIDE LEVEL 26 MEQ/L (21-32); CHLORIDE LEVEL 103 MEQ/L (98-107); CREATININE FOR GFR 1.17 MG/DL (0.70-1.30); GLOMERULAR FILTRATION RATE > 60.0 (>35); GLUCOSE, FASTING 195 MG/DL (70-100); POTASSIUM SERUM 3.5 MEQ/L (3.5-5.1); SODIUM LEVEL 138 MEQ/L (136-145)
[2019-05-22] MEDS: HumaLOG INSULIN (NovoLOG) PER UNIT SC SCH ×4 (08:06→21:00)
[2019-05-22 08:07] VITALS: BP 137/80
[2019-05-22] MEDS: hydroCHLOROthiazide 12.5 MG CAPSULE PO SCH (08:07)
[2019-05-22] MEDS: LISINOPRIL 10 MG TAB PO SCH (08:07)
[2019-05-22] MEDS: VITAMIN D 1,000 INTERNATIONAL UNITS TABLET PO SCH (08:07)
[2019-05-22] MEDS: SENNA 8.6 MG TAB (SENOKOT) PO SCH ×2 (08:07→21:00)
[2019-05-22] MEDS: AZITHROMYCIN INJ 500 MG, VIAL MATE ADAPTER 1 EACH in D5W 250 ML IV SCH (12:16)
[2019-05-22 14:00] VITALS: BP 125/69
--- NOTE | 2019-05-22 14:10 | IPNPDOC ---
Subjective Date Seen The patient was seen on 05/22/19. Subjective Chief Complaint/HPI Patient seen and examined at the bedside. Reports that his shortness of breath is improving, and he has been working with physical therapy. Denies any more hematuria. States that he is feeling much better and is hopeful to go home in the next day or 2. Objective Physical Examination General Exam: Positive: Alert, Cooperative, No Acute Distress ENT Exam: Positive: Atraumatic, Mucous membr. moist/pink Neck Exam: Negative: JVD Chest Exam: Positive: Diminished Heart Exam: Positive: Rate Normal, Normal S1, Normal S2 Abdomen Exam: Positive: Soft Extremity Exam: Positive: Edema Psych Exam: Positive: Oriented x 3 Assessment /Plan Plan/VTE VTE Prophylaxis Ordered?: Yes Plan Non-productive cough, Generalized Weakness 2/[address] Chest notable for area of consolidation in the right upper/middle lobe on admission WBC has normalized Sputum Culture noted, Respiratory Panel unrevealing, and Procalcitonin level positive Cont Rocephin and Azithromycin--will transition to PO Abx in the next 24-48hrs Patient reports improvement of his overall condition today--continuing to work with PT We will cont to monitor the patient's respiratory status Hematuria in a Pt with 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 Urine cytology from 05/19/19 negative for malignancy His hematuria has since resolved CT Abd/Pel notable for enlarged prostate gland I did offer the patient a urologic consultation here for further evaluation of hematuria in view of his history of bladder cancer, and the need for cystoscopy for further evaluation. However, the patient has stated that he would rather follow-up with his urologist for the past 18 years, [address]. Acosta based out of [place], [place]. I have discussed the risks, benefits, and alternative options regarding his decision. The patient has verbalized understanding of the same. He has assured me that he will follow-up with his urologist after discharge for further evaluation of his hematuria. Generalized Deconditioning 2/2 Above PT/OT ordered for functional optimization Diabetes mellitus Hemoglobin A1c from January 2019 noted to be 7.9% Carb consistent diet Insulin sliding scale ordered Hypertension, stable History of Basal cell cancer excision of the left nasolabial fold in 04/2012 Follow up as outpatient DVT Prophylaxis SCDs/TEDs (No AC 2/2 Hematuria) Disposition-pending clinical improvement, functional optimization with physical therapy. VS, I&O, 24H, Fishbone Vital Signs/I&O Vital Signs Date Time Temp Pulse Resp B/P (MAP) Pulse Ox O2 Delivery O2 Flow Rate FiO2 05/22/19 08:07 137/80 05/22/19 06:00 98.4 76 18 92 05/19/19 15:00 Room Air I&O- Last 24 Hours up to 6 AM 05/22/19 06:00 Intake Total 975 ml Output Total 500 ml Balance 475 ml Laboratory Data 24H LABS Laboratory Tests 2 05/21/19 16:45: Bedside Glucose (Misc Panel) 234H 05/21/19 20:29: Bedside Glucose (Misc Panel) 242H 05/22/19 05:57: Nucleated Red Blood Cells % (auto) 0.0, Anion Gap 9, Glomerular Filtration Rate > 60.0, Blood Urea Nitrogen 28H, Creatinine 1.17, Sodium Level 138, Potassium Level 3.5, Chloride Level 103, Carbon Dioxide Level 26, Calcium Level 8.8 05/22/19 11:54: Bedside Glucose (Misc Panel) 178H CBC/BMP Laboratory Tests 05/22/19 05:57 Red Blood Count 3.39 L, Mean Corpuscular Volume 98.8 H, Mean Corpuscular Hemoglobin 33.3 H, Mean Corpuscular Hemoglobin Concent 33.7, Red Cell Distrib ution Width 12.2, Calcium Level 8.8 Microbiology Microbiology 05/19/19 Blood Culture - Preliminary, Resulted No Growth after 72 hours. All specime... 05/19/19 Blood Culture - Preliminary, Resulted No Growth after 72 hours. All specime... 05/19/19 Respiratory Virus Panel (PCR) (JUAN CARLOS) - Final, Complete 05/19/19 Gram Stain - Final, Complete 05/19/19 Sputum Culture - Final, Complete Yeast Like Organism MARYJANE BOSS MD May 22, 2019 14:10
[2019-05-22] MEDS: cefTRIAXone SOD 1 GM in D5W MINI-BAG PLUS 50 ML IV SCH (14:18)
[2019-05-22] MEDS ORDERED: MIRALAX *UNIT DOSE* 17GM PACKET PO PRN (18:15)
[2019-05-22 22:00] VITALS: BP 147/78
[2019-05-22] MEDS: CALCIUM CARBONATE 500 MG CHEW U/D PO SCH (22:17)
[2019-05-23 06:00] VITALS: BP 148/76
[2019-05-23 06:17] LABS: HEMATOCRIT 33.6 % (42.0-52.0); HEMOGLOBIN 11.2 g/dl (13.5-17.5); MEAN CORPUSCULAR HEMOGLOBIN 32.1 pg (27.0-33.0); MEAN CORPUSCULAR HGB CONC 33.3 g/dl (32.0-36.5); MEAN CORPUSCULAR VOLUME 96.3 fl (80.0-96.0); PLATELET COUNT, AUTOMATED 285 10^3/uL (150-450); RED BLOOD COUNT 3.49 10^6/uL (4.30-6.10); WHITE BLOOD COUNT 9.5 10^3/uL (4.0-10.0)
[2019-05-23 06:38] LABS: BLOOD UREA NITROGEN 27 MG/DL (7-18); CALCIUM LEVEL 9.4 MG/DL (8.8-10.2); CARBON DIOXIDE LEVEL 25 MEQ/L (21-32); CHLORIDE LEVEL 105 MEQ/L (98-107); GLOMERULAR FILTRATION RATE > 60.0 (>35); GLUCOSE, FASTING 198 MG/DL (70-100); POTASSIUM SERUM 3.8 MEQ/L (3.5-5.1); SODIUM LEVEL 138 MEQ/L (136-145)
[2019-05-23] MEDS: HumaLOG INSULIN (NovoLOG) PER UNIT SC SCH (08:46)
[2019-05-23] MEDS: hydroCHLOROthiazide 12.5 MG CAPSULE PO SCH (08:47)
[2019-05-23] MEDS: VITAMIN D 1,000 INTERNATIONAL UNITS TABLET PO SCH (08:47)
[2019-05-23] MEDS: LISINOPRIL 10 MG TAB PO SCH (08:47)
[2019-05-23] MEDS: SENNA 8.6 MG TAB (SENOKOT) PO SCH (08:47)
[2019-05-23] MEDS ORDERED: AZIT-12 PO (10:34)
[2019-05-23] MEDS ORDERED: CEFD300CAP PO (10:34)
--- NOTE | 2019-05-23 12:26 | DS.PDOC ---
Discharge Summary General Date of Admission May 19, 2019 at 13:05 Date of Discharge 05/23/2019 Discharge Summary PROCEDURES PERFORMED DURING STAY: [None]. 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 In the emergency room, patient was found to have pneumonia and was adm itted to the hospitalist service for further evaluation and treatment HOSPITAL COURSE: Non-productive cough, Generalized Weakness 2/2 CAP - Currently, patient has improved - Physical without any adventitious lung sounds - Leukocytosis, resolved - Respiratory panel negative. Blood cultures negative at 72 hours - CT Chest notable for area of consolidation in the right upper/middle lobe - Will discharge with Cefdinir / Azithromycin for completion of antibiotic course - We'll have outpatient follow-up with primary care provider within 7 days. 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 Acosta based out of [place], [place]; Did not want to see Urology at [facility] - Patient's was also present in the room when we have advised them to follow up with Urology as an outpatient; patient and have expressed under standing of importance for followup Generalized Deconditioning 2/2 Above - PT/OT has cleared the patient Diabetes mellitus - Hemoglobin A1c from January 2019 noted to be 7.9% - c/w Carb consistent diet and ISS Hypertension, stable History of Basal cell cancer excision of the left and right nasolabial fold - Follow up as outpatient DVT Prophylaxis - c/w SCDs/TEDs (No AC 2/2 Hematuria) DISCHARGE MEDICATIONS: Please see below. ALLERGIES: Please see below. PHYSICAL EXAMINATION ON DISCHARGE: Vitals (See below) General: Lying in bed, no acute distress, comfortable, Awake / Alert HEENT: NC, AT CVS: RRR, +S1S2 Lungs: Fair air entry b/l, -w/r/r Abdomen: Soft, ND, NT Extremities: - Edema, - Calf tenderness LABORATORY DATA: Please see below. ACTIVITY: [As tolerated]. DISCHARGE PLAN: Follow up with Dr. Chichi Torres and Dr. Acosta (Urology) within 7 days Remain compliant with treatment plan and medications Return to the ER if you experience any problems DISPOSITION: Home DISCHARGE CONDITION: [Stable]. TIME SPENT ON DISCHARGE: 35 minutes Vital Signs/I&Os Vital Signs Date Time Temp Pulse Resp B/P (MAP) Pulse Ox O2 Delivery O2 Flow Rate FiO2 05/23/19 06:00 97.4 75 18 148/76 (100) 96 05/19/19 15:00 Room Air I&O- Last 24 Hours up to 6 AM 05/23/19 06:00 Intake Total 865 ml Output Total 600 ml Balance 265 ml Laboratory Data Labs 24H Laboratory Tests 2 05/22/19 17:20: Bedside Glucose (Misc Panel) 283H 05/22/19 20:40: Bedside Glucose (Misc Panel) 175H 05/23/19 05:31: Nucleated Red Blood Cells % (auto) 0.0, Anion Gap 8, Glomerular Filtration Rate > 60.0, Blood Urea Nitrogen 27H, Creatinine 1.20, Sodium Level 138, Potassium Level 3.8, Chloride Level 105, Carbon Dioxide Level 25, Calcium Level 9.4 05/23/19 11:23: Bedside Glucose (Misc Panel) 220H CBC/BMP Laboratory Tests 05/23/19 05:31 Red Blood Count 3.49 L, Mean Corpuscular Volume 96.3 H, Mean Corpuscular Hemoglobin 32.1, Mean Corpuscular Hemoglobin Concent 33.3, Red Cell Distribution Width 12.2, Calcium Level 9.4 FSBS Laboratory Tests Test 05/22/19 17:20 05/22/19 20:40 05/23/19 11:23 Range/Units Bedside Glucose (Misc Panel) 283 175 220 83-110 MG/DL Microbiology Microbiology 05/19/19 Blood Culture - Preliminary, Resulted No Growth after 72 hours. All specime... 05/19/19 Blood Culture - Preliminary, Resulted No Growth after 72 hours. All specime... 05/19/19 Respiratory Virus Panel (PCR) (JUAN CARLOS) - Final, Complete 05/19/19 Gram Stain - Final, Complete 05/19/19 Sputum Culture - Final, Complete Yeast Like Organism Discharge Medications Scheduled Azithromycin (Azithromycin) 250 Mg Tablet, 250 MG PO DAILY Brimonidine Tartrate/Timolol (Combigan 0.2%-0.5% Eye Drops) 1 Shahnaz Shahnaz, 1 DROP OD BID, (Reported) PATIENT STATE HE INSTILL IN THE LEFT EYE IF NEEDED Calcium Carbonate (Tums) 500 Mg Chw, 1,000 MG PO QHS, (Reported) Cefdinir (Cefdinir) 300 Mg Capsule, 300 MG PO BID Cholecalciferol (Vitamin D3) (Vitamin D3) 1,000 Unit Capsule, 1,000 UNIT PO DAILY, (Reported) Erythromycin Base (Erythromycin) 1 Gm Oint...g., 1 DOSE OU QHS, (Reported) Lisinopril/Hydrochlorothiazide (Lisinopril-Hctz 10-12.5 mg Tab) 1 Each Tablet, 1 TAB PO DAILY, (Reported) Metformin HCl (Metformin HCl) 500 Mg Tab, 1,000 MG PO BID, (Reported) TAKES WITH BREAKFAST AND DINNER Allergies Coded Allergies: No Known Allergies (Unverified , 05/15/19) DIEUDONNE BLUNT MD May 23, 2019 12:26
== END 2019-05-23 13:06 | disposition home or self-care (01) | DRG 195 ==
LOC: M ED 10:03 → M ED INP 13:05 → M ICU 15:55 → M MSPAV 05-20 11:43
PROVIDERS: ADMIT Internal Medicine; ATTEND Internal Medicine
DX: J18.9 Pneumonia, unspecified organism (principal); I10 Essential (primary) hypertension; E11.9 Type 2 diabetes mellitus without complications; R31.9 Hematuria, unspecified; R53.1 Weakness; Z85.51 Personal history of malignant neoplasm of bladder; Z85.828 Personal history of other malignant neoplasm of skin; Z79.84 Long term (current) use of oral hypoglycemic drugs; Z79.899 Other long term (current) drug therapy; Z98.42 Cataract extraction status, left eye; Z98.41 Cataract extraction status, right eye; Z87.891 Personal history of nicotine dependence

== ENCOUNTER → 2019-07-20 | Outpatient (REF) | payer MEDICARE, OTHER ==
[~2019-07-20] MED LIST changes: +AZIT-12 PO; +CEFD300CAP PO; +ERYT1OIN26 OU; +ERYTGEL TOP; +LISI10TA15 PO; -LISI10TA2 PO; -LISI20TA PO; +LISI20TA18 PO; -PREVNAR 13 VACCINE SYRINGE (CPT CODE:90670) IM SCH
[2019-07-20 11:59] LABS: APPEARANCE, URINE CLEAR (CLEAR); BACTERIA, URINE AUTO NEGATIVE (NEGATIVE); BILIRUBIN, URINE AUTO NEGATIVE (NEGATIVE); BLOOD, URINE BLOOD NEGATIVE (NEGATIVE); COLOR, URINE YELLOW (YELLOW); GLUCOSE, URINE (UA) AUTO NEGATIVE (NEGATIVE); KETONE, URINE AUTO NEGATIVE (NEGATIVE); LEUKOCYTE ESTERASE, URINE AUTO NEGATIVE (NEGATIVE); NITRITE, URINE AUTO NEGATIVE (NEGATIVE); PROTEIN, URINE AUTO NEGATIVE (NEGATIVE); RBC, URINE AUTO 0 /HPF (0-3); SPECIFIC GRAVITY URINE AUTO 1.014 (1.002-1.035); SQUAMOUS EPITHELIAL CELL UR AU 0 /HPF (0-6); UROBILINOGEN, URINE AUTO 0.2 mg/dL (0.0-2.0); WBC, URINE AUTO 1 /HPF (0-3)
[2019-07-20 12:00] LABS: HEMATOCRIT 37.3 % (42.0-52.0); HEMOGLOBIN 12.2 g/dl (13.5-17.5); MEAN CORPUSCULAR HEMOGLOBIN 32.7 pg (27.0-33.0); MEAN CORPUSCULAR HGB CONC 32.7 g/dl (32.0-36.5); PLATELET COUNT, AUTOMATED 272 10^3/uL (150-450); RED BLOOD COUNT 3.73 10^6/uL (4.30-6.10)
[2019-07-20 12:31] LABS: ALBUMIN 3.2 GM/DL (3.2-5.2); ALT/SGPT 11 U/L (12-78); BILIRUBIN,TOTAL 1.6 MG/DL (0.2-1.0); BLOOD UREA NITROGEN 23 MG/DL (7-18); CALCIUM LEVEL 9.6 MG/DL (8.8-10.2); CARBON DIOXIDE LEVEL 29 MEQ/L (21-32); CHLORIDE LEVEL 105 MEQ/L (98-107); CHOLESTEROL LEVEL 157 MG/DL (<200); CHOLESTEROL RISK RATIO 3.019 (<5); CREATININE FOR GFR 0.96 MG/DL (0.70-1.30); GLOMERULAR FILTRATION RATE > 60.0 (>35); GLUCOSE, FASTING 156 MG/DL (70-100); HDL CHOLESTEROL 52 MG/DL (>40); LDL CHOLESTEROL 84 MG/DL (<100); MAGNESIUM LEVEL 1.7 MG/DL (1.8-2.4); NON-HDL-C 105 MG/DL; POTASSIUM SERUM 3.8 MEQ/L (3.5-5.1); SODIUM LEVEL 142 MEQ/L (136-145); TOTAL PROTEIN 6.2 GM/DL (6.4-8.2); TRIGLYCERIDES LEVEL 103 MG/DL (<150)
[2019-07-20 12:54] LABS: MALB URINE SIEMENS 70.2 MG/L; MAU/CREAT RATIO 87.7 MCG/MG (0.0-30.0)
== END ==
LOC: M SFHCPLAZ 09:47
PROVIDERS: ATTEND Internal Medicine
DX: Z85.51 Personal history of malignant neoplasm of bladder (principal); I10 Essential (primary) hypertension; E11.9 Type 2 diabetes mellitus without complications

== ENCOUNTER 2019-10-07 18:35 | Inpatient (IN) | payer MEDICARE, OTHER ==
[~2019-10-07] VITALS: Ht 167.6 cm; Wt 60.5 kg
[~2019-10-07 18:35] MED LIST changes: -LISI20TA18 PO; +LISI20TA19 PO
--- NOTE | 2019-10-07 18:52 | REPVR ---
PROCEDURE INFORMATION: Exam: CT Head Without Contrast Exam date and time: 10/07/2019 6:41 PM Clinical history: 89 years old, male; Speech disturbance; Slurred speech; Additional info: Slurred speech, R/O stroke TECHNIQUE: Imaging protocol: Computed tomography of the head without contrast. Radiation optimization: All CT scans at this facility use at least one of these dose optimization techniques: automated exposure control; mA and/or kV adjustment per patient size (includes targeted exams where dose is matched to clinical indication); or iterative reconstruction. Other technique: STROKE PROTOCOL was implemented. COMPARISON: CT Head without contrast 03/22/2018 6:35 PM FINDINGS: Brain: Chronic infarct in the right frontal lobe. The del cid-white differentiation is maintained. No hemorrhage. No edema. There are moderate periventricular and subcortical lucencies consistent with chronic microvascular ischemic changes. Ventricles: Normal. No ventriculomegaly. Bones/joints: Unremarkable. No acute fracture. Sinuses: Visualized sinuses are unremarkable. No fluid levels. Mastoid air cells: Visualized mastoid air cells are well aerated. Soft tissues: Unremarkable. IMPRESSION: No acute intracranial abnormality. Chronic microvascular ischemic changes. ASSESSMENT: ASPECTS (Susan Stroke Program Early CT Score) is 10. Electronically signed by: Marcial Danielle On 10/07/2019 18:52:28 PM
[2019-10-07 19:28] LABS: BASO % 0.4 % (0.0-1.0); EOS % 11.4 % (0.0-3.0); HEMATOCRIT 39.4 % (42.0-52.0); HEMOGLOBIN 12.6 g/dl (13.5-17.5); LYMPH # 1.7 10^3/uL (1.5-5.0); LYMPH % 19.7 % (24.0-44.0); MEAN CORPUSCULAR HEMOGLOBIN 32.1 pg (27.0-33.0); MEAN CORPUSCULAR VOLUME 100.5 fl (80.0-96.0); MONO # 0.7 10^3/uL (0.0-0.8); MONO % 8.6 % (0.0-5.0); NEUTROPHILS % 59.4 % (36.0-66.0); PLATELET COUNT, AUTOMATED 236 10^3/uL (150-450); RED BLOOD COUNT 3.92 10^6/uL (4.30-6.10); WHITE BLOOD COUNT 8.4 10^3/uL (4.0-10.0)
[2019-10-07 19:41] LABS: INR 1.01
[2019-10-07 19:55] LABS: BLOOD UREA NITROGEN 29 MG/DL (7-18); CALCIUM LEVEL 9.6 MG/DL (8.8-10.2); CARBON DIOXIDE LEVEL 25 MEQ/L (21-32); CHLORIDE LEVEL 105 MEQ/L (98-107); CK-MB VALUE MASS < 1.0 NG/ML (<3.6); CPK CREATINE PHOSPHOKINASE 35 U/L (39-308); CREATININE FOR GFR 1.04 MG/DL (0.70-1.30); GLOMERULAR FILTRATION RATE > 60.0 (>35); GLUCOSE, FASTING 101 MG/DL (70-100); MB/CK RELATIVE INDEX 2.86 (< OR =4); POTASSIUM SERUM 4.4 MEQ/L (3.5-5.1); SODIUM LEVEL 140 MEQ/L (136-145); TROPONIN I < 0.02 NG/ML (< 0.10)
[2019-10-07] MEDS ORDERED: ASPIRIN 325 MG TAB PO ONE (20:00)
[2019-10-07] MEDS ORDERED: ACETAMINOPHEN TAB 650MG DOSE (2X325MG) PO PRN (20:15)
[2019-10-07] MEDS ORDERED: LABETALOL HCL 100 MG/20 ML VIAL IV PRN (20:15)
--- NOTE | 2019-10-07 20:19 | HPEPDOC ---
[facility] Medical History & Physical Date of Admission Oct 07, 2019 Date of Service: Oct 07, 2019 Primary Care Physician: Dion Torres Attending Physician: KELLY STODDARD MD History and Physical TIME OF SERVICE: 9:15 PM CHIEF COMPLAINT: Slurred speech HISTORY OF PRESENT ILLNESS: This is an 89-year-old male who was brought to the hospital by his family because of 2 episodes of slurred speech. The first episode which occurred at 1:30 PM, lasted for 15 minutes and was accompanied by weakness. The second episode occurred at 6 PM and resolved prior to the patient's arrival at the ED. Other associated symptoms included confusion and difficulties walking. Currently the patient denies having any complaints, denies having any weakness or any other concerns. Per Dr. Carvajal his NIH score was 0 and the patient didn't have any focal deficits at the time of his exam. REVIEW OF SYSTEMS: 12 point review of systems negative except as listed in HPI PAST MEDICAL/ SURGICAL HISTORY: Scz-ztnaeuu-lcicaxfor diabetes. Chronic hypertension. Glaucoma. History of diverticulosis. History of vitamin D deficiency. Thyroid nodule History of nonrheumatic aortic valve disorder. Status post basal cell cancer excision . Status post resection of bladder tumor by cystoscopy Status post resection of colonic polyps. Status is post cataract surgery SOCIAL HISTORY: He is a former smoker. He lives with his FAMILY HISTORY: His father of an VT in his 80s. His mother of a CVA in her 80s. He had a twin sister who of breast cancer ALLERGIES: Please see below. HOME MEDICATIONS: Please see below. PHYSICAL EXAMINATION: VITAL SIGNS: Please see below. GENERAL APPEARANCE: Slim build, well-developed, slightly anxious HEENT:. Normocephalic, atraumatic, mucous membranes moist and pink CARDIOVASCULAR: Regular rate and rhythm. No murmurs, rubs or gallops LUNGS:. Lungs are clear to auscultation bilaterally on room air ABDOMEN:. Sounds are present. Abdomen is soft and nontender. Palpation MUSCULOSKELETAL:. Range of motion is intact in all 4 extremities. Strength is 5 / 5 in all extremities except the right upper extremity where the strength is - 4/5 INTEGUMENT: He is not flushed. He has not had jaundice NEUROLOGICAL:. Cranial nerves II-12 are grossly intact except for right facial nerve where he appears to have some mild nasolabial fold flattening. Speech is not dysarthric PSYCHIATRIC:, Alert and oriented to person, place and time, able to understand and follow all commands LABORATORY DATA: See below. IMAGING: CT of the head " IMPRESSION: No acute intracranial abnormality.Chronic microvascular ischemic changes." Chest x-ray final read is pending. MRI of the brain " IMPRESSION: 6 mm acute infarct at the left mack radiata." MRA of the brain "IMPRESSION: No hemodynamically significant stenosis or large vessel occlusion." MICROBIOLOGY: Please see below. ASSESSMENT: Mr. Melendez is an 89-year-old male the past medical history of NIDDM, chronic hypertension, and remote history of bladder cancer who will be admitted for management of a stroke. PLAN: 1. Acute left mack radiata infarct The patient has residual mild right upper extremity weakness. Reports from imaging studies have been reviewed. EKG showed first-degree AV block The patient was not a candidate for tPA because his symptoms started around 1:30PM, his BP was 196/81 at the time presentation and he is >80 yrs old. He received aspirin in the ER Plan: admit to PCU / telemetry /fall precautions / f/u lipid panel for ACVD risk score & A1C, TSH, f/u Echo / NPO pending swallow evaluation / PT/OT consult / ASA & statin /neurology consult / Permissive hypertension for 24 hours with target blood pressure less than 220/120/ Post stroke target glycemic range between 140 and 180 2.Vbq-pebdvdt-dchdttbwi diabetes Plan: f/u accuchecks & A1C / hypoglycemia protocol / sliding scale insulin / hold oral anti-glycemics 3. Chronic hypertension. Plan:hold home meds for 24H 4. Glaucoma Plan: Continue home meds. DVT prophylaxis with SCDs pending repeat imaging studies to rule out hemorrhagic conversion. Disposition: home vs inpatient rehabilitation after more than 2 midnight stay Vital Signs Vital Signs Date Time Temp Pulse Resp B/P (MAP) Pulse Ox O2 Delivery O2 Flow Rate FiO2 10/07/19 19:15 89 147/73 (97) 95 Room Air 10/07/19 18:36 97.2 20 Laboratory Data Labs 24H Laboratory Tests 2 10/07/19 19:06: Immature Granulocyte % (Auto) 0.5, Neutrophils (%) (Auto) 59.4, Lymphocytes (%) (Auto) 19.7L, Monocytes (%) (Auto) 8.6H, Eosinophils (%) (Auto) 11.4H, Basophils (%) (Auto) 0.4, Neutrophils # (Auto) 5.0, Lymphocytes # (Auto) 1.7, Monocytes # (Auto) 0.7, Eosinophils # (Auto) 1.0H, Basophils # (Auto) 0.0, Nucleated Red Blood Cells % (auto) 0.0, Prothrombin Time 13.0, Prothromb Time International Ratio 1.01, Activated Partial Thromboplast Time 25.0, Anion Gap 10, Glomerular Filtration Rate > 60.0, Calcium Level 9.6, Total Creatine Kinase 35L, Creatine Kinase MB < 1.0, Creatine Kinase MB Relative Index 2.86, Troponin I < 0.02 10/07/19 19:12: Urine Color YELLOW, Urine Appearance CLEAR, Urine pH 5.0, Urine Specific Hope 1.015, Urine Protein NEGATIVE, Urine Glucose (UA) NEGATIVE, Urine Ketones TRACEH, Urine Blood NEGATIVE, Urine Nitrite NEGATIVE, Urine Bilirubin NEGATIVE, Urine Urobilinogen 0.2, Urine Leukocyte Esterase NEGATIVE, Urine WBC (Auto) 1, Urine RBC (Auto) 0, Urine Hyaline Casts (Auto) 0, Urine Bacteria (Auto) NEGATIVE, Urine Squamous Epithelial Cells 0, Urine Sperm (Auto) CBC/BMP Laboratory Tests 10/07/19 19:06 Home Medications Scheduled Aspirin (Aspirin EC) 81 Mg Tablet.dr, 81 MG PO DAILY Calcium Carbonate (Tums) 500 Mg Chw, 500 MG PO QHS Cholecalciferol (Vitamin D3) (Vitamin D3) 1,000 Unit Capsule, 1,000 UNIT PO DAILY Dorzolamide HCl/Timolol Maleat (Cosopt Eye Drops) 10 Ml Drops, 1 DROP OD BID Lisinopril/Hydrochlorothiazide (Lisinopril-Hctz 10-12.5 mg Tab) 1 Each Tablet, 1 TAB PO DAILY Magnesium Oxide (Magnesium Oxide) 400 Mg Tablet, 200 MG PO DAILY TAKES AT NOON Metformin HCl (Metformin HCl) 500 Mg Tab, 1,000 MG PO BID TAKES WITH BREAKFAST AND DINNER Pravastatin Sodium (Pravachol) 20 Mg Tablet, 40 MG PO QHS Allergies Coded Allergies: No Known Allergies (Unverified , 05/15/19) A-FIB/CHADSVASC A-FIB History Current/History of A-Fib/PAF?: No Current PO Anticoag Therapy: No KELLY STODDARD MD Oct 07, 2019 20:19
[2019-10-07] MEDS ORDERED: MAGN400T2 PO (20:29)
[2019-10-07] MEDS ORDERED: DEXTROSE 50% 50 ML SYRINGE IV PRN (20:30)
[2019-10-07] MEDS ORDERED: GLUCOSE 4 GM CHEW TABLET PO PRN (20:30)
[2019-10-07] MEDS ORDERED: GLUCAGON FOR INJ 1 MG VIAL (J1610) SC PRN (20:30)
[2019-10-07 20:50] LABS: HEMOGLOBIN A1c 7.4 %
[2019-10-07] MEDS: HumaLOG INSULIN (NovoLOG) PER UNIT SC SCH (21:00)
--- NOTE | 2019-10-07 21:28 | REPVR ---
PROCEDURE INFORMATION: Exam: MR Head Without Contrast Exam date and time: 10/07/2019 9:00 PM Clinical history: 89 years old, male; Speech disturbance; Patient HX: Slurred speech episodes twice earlier today that have since resolved. ; Additional info: CVA TECHNIQUE: Imaging protocol: MR of the head without contrast. COMPARISON: MRI-Brain without Contrast 03/24/2018 1:05 PM FINDINGS: Age related volume loss. Major vascular flow voids at the skull base are preserved. No extra-axial fluid collection. No midline shift or intracranial mass effect. Nonspecific white matter gliosis, probable chronic microvascular ischemia. Small chronic right frontal lobe infarction. 6 mm focus of diffusion restriction at the left mack radiata. Visualized paranasal sinuses and mastoid air cells are clear. IMPRESSION: 6 mm acute infarct at the left mack radiata. Electronically signed by: Daniel Walton On 10/07/2019 21:28:22 PM
--- NOTE | 2019-10-07 21:34 | REPVR ---
PROCEDURE INFORMATION: Exam: MR Angiogram Head Without Contrast, Arteries Exam date and time: 10/07/2019 9:00 PM Clinical history: 89 years old, male; Speech disturbance; Slurred speech; Additional info: CVA TECHNIQUE: Imaging protocol: MR angiogram head without contrast. Exam focused on the arteries. COMPARISON: MRI-Brain without Contrast 03/24/2018 1:05 PM FINDINGS: Right internal carotid artery: Unremarkable. Intracranial segment is patent with no significant stenosis. No aneurysm. Right anterior cerebral artery: Unremarkable. No occlusion or significant stenosis. No aneurysm. Right middle cerebral artery: Unremarkable. No occlusion or significant stenosis. No aneurysm. Right posterior cerebral artery: Unremarkable. No occlusion or significant stenosis. No aneurysm. Right vertebral artery: Right vertebral artery is dominant. Left internal carotid artery: Unremarkable. Intracranial segment is patent with no significant stenosis. No aneurysm. Left anterior cerebral artery: Unremarkable. No occlusion or significant stenosis. No aneurysm. Left middle cerebral artery: Unremarkable. No occlusion or significant stenosis. No aneurysm. Left posterior cerebral artery: Unremarkable. No occlusion or significant stenosis. No aneurysm. Left vertebral artery: Unremarkable. No occlusion or significant stenosis. No aneurysm. Basilar artery: Unremarkable. No occlusion or significant stenosis. No aneurysm. IMPRESSION: No hemodynamically significant stenosis or large vessel occlusion. Electronically signed by: Dainel Walton On 10/07/2019 21:34:10 PM
[2019-10-07] MEDS ORDERED: METOPROLOL TART 12.5 MG PER 1/2 TAB PO PRN (22:00)
[2019-10-07 22:02] LABS: CHOLESTEROL LEVEL 177 MG/DL (<200); CHOLESTEROL RISK RATIO 2.765 (<5); HDL CHOLESTEROL 64 MG/DL (>40); LDL CHOLESTEROL 81 MG/DL (<100); NON-HDL-C 113 MG/DL; TRIGLYCERIDES LEVEL 158 MG/DL (<150)
[2019-10-08] MEDS ORDERED: CALCIUM CARBONATE 500 MG CHEW U/D PO PRN (01:00)
[2019-10-08] MEDS: PRAVASTATIN 20 MG TAB PO SCH ×2 (01:14→21:34)
[2019-10-08 01:26] LABS: THYROID STIMULATING HORMONE 0.844 uIU/ML (0.358-3.740)
[2019-10-08 05:55] VITALS: BP 124/64
[2019-10-08] MEDS: HumaLOG INSULIN (NovoLOG) PER UNIT SC SCH ×4 (07:30→21:00)
[2019-10-08 08:00] VITALS: BP 126/63
--- NOTE | 2019-10-08 08:32 | REP ---
Portable chest x-ray: Single view. History: CVA. Comparison study: May 19, 2019. Findings: The lungs are symmetrically aerated and free of infiltrate. Heart is not enlarged. The aorta is tortuous and calcific. There are multiple old right-sided rib fractures again noted. No infiltrate is seen. The pleural angles are sharp. Impression: No acute disease. Electronically Signed by Tejas Aparicio MD 10/08/2019 08:24 A
[2019-10-08] MEDS ORDERED: ATORVASTATIN 20 MG TAB PO SCH (09:00)
--- NOTE | 2019-10-08 10:51 | IPNPDOC ---
Subjective Date Seen The patient was seen on 10/08/19. Subjective Chief Complaint/HPI Patient is comfortable sitting in bed, offers noon he complains was read regular food. No weakness in any extremity. No more slurring of speech, or difficulty swallowing General: Denies: ROS Unobtainable, Chills, Night Sweats, Fatigue, Malaise, Normal Appetite, Other Symptoms Constitutional: Denies: Chills, Fever, Malaise, Night Sweats, Weakness, Fatigue, Weight Loss, Lethargy, Other Eyes: Denies: Pain, Vision change, Conjunctivae inflammation, Eyelid inflammation, Redness, Other ENT: Denies: Head Aches, Ear Pain, Dysphagia, Sinus Congestion, Post Nasal Drip, Sore Throat, Epistaxis, Other Symptoms Skin: Denies: Rash, Lesions, Jaundice, Bruising, Itching, Dry, Breakdown, Nail Changes, Other Pulmonary: Denies: Dyspnea, Cough, Pleuritic Chest Pain, Other Symptoms Cardiovascular: Denies: Chest Pain, Palpitations, Orthopnea, Paroxysmal Noc. Dyspnea, Edema, Lt Headedness, Other Symptoms Gastrointestinal: Denies: Nausea, Vomiting, Abdominal Pain, Diarrhea, Cons tipation, Melena, Hematochezia, Other Symptoms Musculoskeletal: Denies: Neck Pain, Back Pain, Shoulder Pain, Arm Pain, Hand Pain, Leg Pain, Foot Pain, Joint Pain, Muscle Pain, Spasms, Other Symptoms Neurological: Denies: Weakness, Numbness, Incoordination, Change in speech, Confusion, Seizures, Other Symptoms Psych: Denies: Mood Normal, Anxiety, Depression, Memory Issues, Thoughts of Self Harm, Anger, Thoughts of Harming Other, Other Psych Objective Physical Examination General Exam: Positive: Alert, Cooperative Eye Exam: Positive: PERRLA, Conjunctiva & lids normal ENT Exam: Positive: Atraumatic, Mucous membr. moist/pink Neck Exam: Positive: Supple Chest Exam: Positive: Clear to auscultation, Normal air movement Heart Exam: Positive: Rate Normal, Normal S1 Abdomen Exam: Positive: Normal bowel sounds, Soft Extremity Exam: Positive: Normal pulses Skin Exam: Positive: Nl turgor and temperature Neuro Exam: Positive: Strength at 5/5 X4 ext, Sensation Intact Psych Exam: Positive: Mental status NL, Mood NL, Oriented x 3 Assessment /Plan Problems (1) CVA (cerebral vascular accident) Problem Text: Acute left mack radiata infarct The patient has residual mild right upper extremity weakness. MRI shows 6 mm infarct and: Radiate a but noat mack radiata, but no stenosis or blockage EKG showed first-degree AV block The patient was not a candidate for tPA because his symptoms started around 1:30PM, his BP [id number]/81 at the time presentation and he is >80 yrs old. He received aspirin in the ER and will continue aspirin 81 mg by mouth daily Bedside swallow has done, patient passed the test and will advance diet as tolerated Physical therapy and occupational therapy evaluations in a.m. Speech and swallow evaluation in a.m. LDL within normal range, continue home dose of statin, MERLIN inhibitor and diuretics Neuro consult pending (2) Diabetes mellitus Problem Text: Fingerstick blood sugar every before meals and at bedtime with coverage Continue home meds (3) HTN (hypertension) Problem Text: Continue home medications Plan/VTE VTE Prophylaxis Ordered?: Yes VS, I&O, 24H, Fishbone Vital Signs/I&O Vital Signs Date Time Temp Pulse Resp B/P (MAP) Pulse Ox O2 Delivery O2 Flow Rate FiO2 10/08/19 08:00 98.5 73 18 126/63 (84) 93 Room Air I&O- Last 24 Hours up to 6 AM 10/08/19 06:00 Intake Total 0 ml Output Total 0 ml Balance 0 ml Laboratory Data 24H LABS Laboratory Tests 2 10/07/19 19:06: Immature Granulocyte % (Auto) 0.5, Neutrophils (%) (Auto) 59.4, Lymphocytes (%) (Auto) 19.7L, Monocytes (%) (Auto) 8.6H, Eosinophils (%) (Auto) 11.4H, Basophils (%) (Auto) 0.4, Neutrophils # (Auto) 5.0, Lymphocytes # (Auto) 1.7, Monocytes # (Auto) 0.7, Eosinophils # (Auto) 1.0H, Basophils # (Auto) 0.0, Nucleated Red Blood Cells % (auto) 0.0, Prothrombin Time 13.0, Prothromb Time International Ratio 1.01, Activated Partial Thromboplast Time 25.0, Anion Gap 10, Glomerular Filtration Rate > 60.0, Estimated Mean Plasma Glucose 166H, Hemoglobin A1c 7.4, Calcium Level 9.6, Total Creatine Kinase 35L, Creatine Kinase MB < 1.0, Creatine Kinase MB Relative Index 2.86, Troponin I < 0.02, Triglycerides Level 158H, Total Cholesterol 177, LDL Cholesterol 81, Non-HDL Cholesterol (LDL + VLDL) 113, Total HDL Cholesterol 64, Cholesterol/HDL Ratio 2.765, Thyroid Stimulating Hormone (TSH) 0.844 10/07/19 19:12: Urine Color YELLOW, Urine Appearance CLEAR, Urine pH 5.0, Urine Specific Paia 1.015, Urine Protein NEGATIVE, Urine Glucose (UA) NEGATIVE, Urine Ketones TRACEH, Urine Blood NEGATIVE, Urine Nitrite NEGATIVE, Urine Bilirubin NEGATIVE, Urine Urobilinogen 0.2, Urine Leukocyte Esterase NEGATIVE, Urine WBC (Auto) 1, Urine RBC (Auto) 0, Urine Hyaline Casts (Auto) 0, Urine Bacteria (Auto) NEGATIVE, Urine Squamous Epithelial Cells 0, Urine Sperm (Auto) 10/07/19 21:19: Bedside Glucose (Misc Panel) 122H 10/08/19 08:50: Bedside Glucose (Misc Panel) 129H CBC/BMP Laboratory Tests 10/07/19 19:06 UNA MARTIN MD Oct 08, 2019 10:51
[2019-10-08 12:00] VITALS: BP 170/70
--- NOTE | 2019-10-08 12:10 | ECGEPIP ---
[facility] - ED Test Date: 2019-10-07 Pat Name: MILDRED SANDS Department: Room: [place] [address] Gender: Male Rn Telephone Triage: TATI : 1930 Requested By: JOSSELYN David Order Number: [id number] Reading MD: Jory Bryant Measurements Intervals [place] Rate: 80 P: 48 NV: 280 QRS: 14 QRSD: 91 T: 30 QT: 390 QTc: 450 Interpretive Statements SINUS RHYTHM WITH FIRST DEGREE AV BLOCK NSTTW abnormalities DECREASED RATE/ECTOPY/PROLONGED QTC 05/19/19 Electronically Signed on 10-08-2019 12:10:14 EST by Jory Bryant
[2019-10-08] MEDS: ASPIRIN 81 MG ENTERIC TAB PO SCH (13:11)
[2019-10-08] MEDS: VITAMIN D 1,000 INTERNATIONAL UNITS TABLET PO SCH (13:11)
[2019-10-08] MEDS: MAGNESIUM OXIDE 400 MG TAB (MAG-OX) PO SCH (13:12)
[2019-10-08] MEDS: hydroCHLOROthiazide 12.5 MG CAPSULE PO SCH (13:12)
[2019-10-08] MEDS: LISINOPRIL 10 MG TAB PO SCH (13:12)
[2019-10-08 16:00] VITALS: BP 168/78
[2019-10-08] MEDS: metFORMIN (GLUCOPHAGE) 500 MG TAB PO SCH (18:19)
[2019-10-08 20:00] VITALS: BP 168/75
[2019-10-08] MEDS ORDERED: ENTER DRUG NAME HERE (PATIENT'S OWN MED) OD SCH (21:00)
[2019-10-08] MEDS ORDERED: CALCIUM CARBONATE 500 MG CHEW U/D PO SCH (21:00)
[2019-10-09] VITALS: BP 139/70
[2019-10-09 04:00] VITALS: BP 130/61
[2019-10-09 06:25] LABS: HEMOGLOBIN 11.1 g/dl (13.5-17.5); MEAN CORPUSCULAR HEMOGLOBIN 32.4 pg (27.0-33.0); MEAN CORPUSCULAR HGB CONC 33.6 g/dl (32.0-36.5); MEAN CORPUSCULAR VOLUME 96.2 fl (80.0-96.0); PLATELET COUNT, AUTOMATED 195 10^3/uL (150-450); RED BLOOD COUNT 3.43 10^6/uL (4.30-6.10); WHITE BLOOD COUNT 7.6 10^3/uL (4.0-10.0)
--- NOTE | 2019-10-09 06:31 | REP ---
Duplex carotid sonography: History: CVA. Findings: Antegrade flow was observed in both vertebral arteries. Right carotid: The right common carotid artery shows diffuse intimal thickening. There is mild mixed plaquing in the bulb and proximal ICA on two-dimensional scanning. Color flow and spectral Doppler interrogation are unremarkable on the right. Velocity chart right carotid: PSV EDV Right CCA 77.0 cm/s Right ICA 92.0 20.0 Right ECA 91.0 Right ICA/CCA ratio normal 1.2. Impression: Less than 50% category narrowing in the right ICA. Left carotid: The left common carotid artery shows some diffuse intimal thickening. There is a mild to moderate mixed plaquing in the bulb and proximal ICA on two-dimensional scanning. Slightly elevated systolic velocity is observed in the ICA and ECA. PSV EDV Left CCA 122.0 cm/s Left ICA 140.0 31.0 Left ECA 135.0 Left ICA/CCA ratio normal 1.1. Impression: Less than 50% category narrowing in the left ICA. Moderate mixed plaquing. Electronically Signed by Tejas Aparicio MD 10/09/2019 08:34 A
[2019-10-09 06:44] LABS: BLOOD UREA NITROGEN 30 MG/DL (7-18); CALCIUM LEVEL 9.1 MG/DL (8.8-10.2); CARBON DIOXIDE LEVEL 28 MEQ/L (21-32); CHLORIDE LEVEL 107 MEQ/L (98-107); CREATININE FOR GFR 1.04 MG/DL (0.70-1.30); GLOMERULAR FILTRATION RATE > 60.0 (>35); GLUCOSE, FASTING 132 MG/DL (70-100); POTASSIUM SERUM 3.5 MEQ/L (3.5-5.1); SODIUM LEVEL 142 MEQ/L (136-145)
--- NOTE | 2019-10-09 07:07 | CR ---
DATE OF CONSULTATION: 10/08/2019 REFERRING PHYSICIAN: Dr. Ana Dexter REASON FOR CONSULTATION: Episodes of slurred speech. HISTORY OF PRESENT ILLNESS: Kamron Melendez is an 89-year-old man who lives with his at home and was at his baseline state of health until yesterday afternoon when around 1:30 p.m. he developed slurred speech and right arm weakness which lasted for 5-6 minutes. It resolved on its own. He had a second episode around 6:00 p.m. and it lasted for 20 minutes. He had slurred speech and possible weakness of the right arm. His symptoms improved by the time he came to the emergency department. He also felt confusion and difficulty walking when his episode was happening. He now feels back to his baseline. He denies any headaches, neck pain, back pain, dysphagia, dysarthria, diplopia, falls or loss of consciousness. DIAGNOSTIC STUDIES: MRI scan of brain was reviewed and showed a 6 mm left mack radiata ischemic stroke. MRA brain was within normal limits. Total cholesterol was 177 with LDL 81 and HDL 63. 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 SOCIAL HISTORY: He quit smoking in 1985. He lives with his . He denies alcohol or illicit drugs. FAMILY HISTORY: Father of [place] and mother of stroke. Sister with history of breast cancer. REVIEW OF SYSTEMS: All systems were reviewed and found to be noncontributory except as mentioned in history of present illness. CURRENT MEDICATIONS: - calcium carbonate - Combigan eye drops - lisinopril/hydrochlorothiazide 10/12.5 mg by mouth daily - magnesium oxide 2 mg by mouth daily - metformin 1000 mg by mouth twice a day ALLERGIES: None. PHYSICAL EXAMINATION: Temperature 97.2, pulse 89, respiratory rate 20, blood pressure 147/73, 95% saturation on room air. Heart: Regular rate and rhythm. Lungs: Clear to auscultation. Abdomen: Soft, nontender, nondistended. No pedal edema. No musculoskeletal abnormalities. No rash. No signs of meningeal irritation. The patient is awake, alert, oriented to place, person and time. Normal speech, comprehension and repetition. Extraoral muscles are intact. No facial weakness. Tongue and uvula are midline. Visual peck are full to confrontation. There is no nystagmus. 5/5 strength in left arm and leg and right leg. He has mild right pronator drift. Rest of the strength in right arm is normal. Normal sensation throughout bilaterally. Deep tendon flexes 1+ throughout. Gait is normal. ASSESSMENT: 1. Small 6 mm left mack radiata acute ischemic stroke. 2. Hypertension. PLAN: 1. Carotid ultrasound. 2. Aspirin 81 mg by mouth daily. His LDL is 81 and HDL is 63. He likely does not need long-term use of statins. He is currently on pravastatin 40 mg by mouth daily in the hospital. 3. Physical and occupational therapy. 4. Continue telemetry monitoring and echocardiogram. 5. Follow with our office in 2-3 weeks after hospital discharge.
[2019-10-09 08:00] VITALS: BP 140/62
[2019-10-09 08:55] VITALS: BP 140/62
[2019-10-09] MEDS: metFORMIN (GLUCOPHAGE) 500 MG TAB PO SCH (08:55)
[2019-10-09] MEDS: ASPIRIN 81 MG ENTERIC TAB PO SCH (08:55)
[2019-10-09] MEDS: hydroCHLOROthiazide 12.5 MG CAPSULE PO SCH (08:55)
[2019-10-09] MEDS: VITAMIN D 1,000 INTERNATIONAL UNITS TABLET PO SCH (08:55)
[2019-10-09] MEDS: LISINOPRIL 10 MG TAB PO SCH (08:55)
[2019-10-09] MEDS: HumaLOG INSULIN (NovoLOG) PER UNIT SC SCH ×2 (08:56→11:44)
[2019-10-09] MEDS ORDERED: TIMOLOL OD SCH (09:00)
[2019-10-09] MEDS ORDERED: EYE OD SCH (09:00)
[2019-10-09] MEDS ORDERED: DORZOLAMIDE OD SCH (09:00)
[2019-10-09] MEDS: MAGNESIUM OXIDE 400 MG TAB (MAG-OX) PO SCH (11:44)
[2019-10-09] MEDS ORDERED: SLF 3 ML SYR IV PRN (12:00)
[2019-10-09] MEDS ORDERED: COSO1SOL3 OD (12:12)
[2019-10-09] MEDS ORDERED: PRAV1TAB39 PO (13:33)
[2019-10-09] MEDS ORDERED: ASPI81TAEC PO (13:33)
[2019-10-09] MEDS ORDERED: SLF 3 ML SYR IV SCH (14:00)
--- NOTE | 2019-10-09 15:52 | DS.PDOC ---
Discharge Summary General Date of Admission Oct 08, 2019 at 03:13 Date of Discharge 10/09/19 Discharge Summary PROCEDURES PERFORMED DURING STAY: [None]. ADMITTING DIAGNOSES: 1. CVA 2. DM 3. HTN 4. Glaucoma DISCHARGE DIAGNOSES: 1. CVA 2. DM 3. HTN 4. Glaucoma COMPLICATIONS/CHIEF COMPLAINT: TIA. HISTORY OF PRESENT ILLNESS: This is an 89-year-old male who was brought to the hospital by his family bridgetteau se of 2 episodes of slurred speech. The first episode which occurred at 1:30 PM, lasted for 15 minutes and was accompanied by weakness. The second episode occurred at 6 PM and resolved prior to the patient's arrival at the ED. Other associated symptoms included confusion and difficulties walking. Currently the patient denies having any complaints, denies having any weakness or any other concerns. Per Dr. Carvajal his NIH score was 0 and the patient didn't have any focal deficits at the time of his exam. HOSPITAL COURSE: Patient found to have acute L. mack radiata infarct with mild RUE weakness on presentation now barely noticable or had resolved. He was not a tPA candidate. Completed CVA workup including carotid dopplers with <50% stenosis and completion of ECHO. Patient reported feeling well without any complaints. Cleared PT, speech and swallow. Stated that he had returned to his baseline mostly. To discharge patient home to f/u neuro. Started on ASA and statin. DISCHARGE MEDICATIONS: Please see below. ALLERGIES: Please see below. PHYSICAL EXAMINATION ON DISCHARGE: VITAL SIGNS: Please see below. General: No acute distress, Alert Eyes: Normal sclera, EOMI, MICHELLE HENT: Atraumatic, neck supple, moist mucous membranes Cardiovascular: Normal rate, normal rhythm. No murmurs appreciated. Pulmonary: Clear to auscultation b/l, no wheezing GI: Soft, nontender, nondistended Skin: Warm and dry Neuro: CN grossly intact. No focal deficits. Strengths equal b/l. Psych: oriented x 3 LABORATORY DATA: Please see below. IMAGING: CT of the head " IMPRESSION: No acute intracranial abnormality.Chronic microvascular ischemic changes." Chest x-ray final read is pending. MRI of the brain " IMPRESSION: 6 mm acute infarct at the left mack radiata." MRA of the brain "IMPRESSION: No hemodynamically significant stenosis or large vessel occlusion." ACTIVITY: [As tolerated]. DIET: Regular DISCHARGE PLAN: c/w ASA and statin f/u Neurology and PCP f/u ECHO DISPOSITION: Home. DISCHARGE INSTRUCTIONS: c/w ASA and statin f/u Neurology and PCP ITEMS TO FOLLOWUP ON ON OUTPATIENT: ECHO DISCHARGE CONDITION: [Stable]. TIME SPENT ON DISCHARGE: 32 minutes. Vital Signs/I&Os Vital Signs Date Time Temp Pulse Resp B/P (MAP) Pulse Ox O2 Delivery O2 Flow Rate FiO2 10/09/19 08:55 140/62 10/09/19 08:00 97.6 87 18 94 Room Air I&O- Last 24 Hours up to 6 AM 10/09/19 06:00 Intake Total 750 ml Output Total 300 ml Balance 450 ml Laboratory Data Labs 24H Laboratory Tests 2 10/08/19 16:54: Bedside Glucose (Misc Panel) 81L 10/08/19 21:29: Bedside Glucose (Misc Panel) 145H 10/09/19 05:11: Nucleated Red Blood Cells % (auto) 0.0, Anion Gap 7L, Glomerular Filtration Rate > 60.0, Calcium Level 9.1 10/09/19 11:30: Bedside Glucose (Misc Panel) 152H CBC/BMP Laboratory Tests 10/09/19 05:11 FSBS Laboratory Tests Test 10/08/19 16:54 10/08/19 21:29 10/09/19 11:30 Range/Units Bedside Glucose (Misc Panel) 81 145 152 83-110 MG/DL Discharge Medications Scheduled Aspirin (Aspirin EC) 81 Mg Tablet.dr, 81 MG PO DAILY Calcium Carbonate (Tums) 500 Mg Chw, 500 MG PO QHS, (Reported) Cholecalciferol (Vitamin D3) (Vitamin D3) 1,000 Unit Capsule, 1,000 UNIT PO DAILY, (Reported) Dorzolamide HCl/Timolol Maleat (Cosopt Eye Drops) 10 Ml Drops, 1 DROP OD BID, (Reported) Lisinopril/Hydrochlorothiazide (Lisinopril-Hctz 10-12.5 mg Tab) 1 Each Tablet, 1 TAB PO DAILY, (Reported) Magnesium Oxide (Magnesium Oxide) 400 Mg Tablet, 200 MG PO DAILY, (Reported) TAKES AT NOON Metformin HCl (Metformin HCl) 500 Mg Tab, 1,000 MG PO BID, (Reported) TAKES WITH BREAKFAST AND DINNER Pravastatin Sodium (Pravachol) 20 Mg Tablet, 40 MG PO QHS Allergies Coded Allergies: No Known Allergies (Unverified , 05/15/19) DAVID CULVER MD Oct 09, 2019 15:52
--- NOTE | 2019-10-10 06:42 | ECHO ---
DATE OF PROCEDURE: 10/09/2019 DATE OF : 1930 AGE: 89 GENDER: Male HEIGHT: 66 inches WEIGHT: 145 pounds BODY SURFACE AREA: 1.75 meters squared INPATIENT: U - room 3213 REFERRING PHYSICIAN: Dr. Ana Dexter INDICATIONS: CVA - cardiac source of embolic material? MEASUREMENTS: 2-D Measurements: RV: 3.8 cm LV: 4.6 cm Septum: 1.2 cm Posterior wall: 1.2 cm Aortic root: 3.7 cm LA: 4.0 cm LVEF: 65-70% Doppler Measurements: AV: 1.01 m/s LVOT: 0.82 m/s LVOT diameter: 2.1 cm MV - E 36, A 122 EA ratio 0.3 E prime medial: 5.2 A prime medial: 10.5 E prime lateral: 9.1 Average E/E prime ratio: 5; PCWP 8 mmHg PV: Unable to visualize IVC: 2.0 cm COMMENTS: Normal sinus rhythm with first-degree AV block. No intraventricular conduction disturbance. Technically difficult study in light of the patient's body habitus, but some diagnostically useful information was still obtained. M-mode and two-dimensional echocardiography was performed with pulsed, continuous wave, color flow and tissue Doppler studies. Borderline concentric left ventricle hypertrophy with hyperkinetic wall motion. Mildly dilated left atrium with grade 1 impairment of LV diastolic function, but currently normal estimated mean left atrial pressure. Normal appearing right heart chamber sizes and motion, but could not estimate his pulmonary arterial pressure. Normal IVC size and collapse against an elevated central venous pressure. At least moderately thickened three equal size aortic cusps with no apparent functional abnormality. Mild mitral annular calcification without more than trace insufficiency and no inflow tract obstruction. Normal appearing tricuspid valve with no more than trace insufficiency. Unable to detect an intracardiac mass or pericardial effusion. Because of the observed technical difficulty and his abnormal appearing aortic valve, if a cardiac source of embolic material is seriously suspect, would recommend a transesophageal echocardiogram.
== END 2019-10-09 16:32 | disposition home or self-care (01) | DRG 66 ==
LOC: M ED 18:35 → M ED INP 18:36 → OBSVTOIN 10-08 03:13 → M PCU 10-08 05:52
PROVIDERS: ADMIT Internal Medicine; ATTEND Student in an Organized Health Care Education/Training Program
DX: I63.59 Cerebral infarction due to unspecified occlusion or stenosis of other cerebral artery (principal); E11.9 Type 2 diabetes mellitus without complications; I10 Essential (primary) hypertension; H40.9 Unspecified glaucoma; R26.9 Unspecified abnormalities of gait and mobility; E04.1 Nontoxic single thyroid nodule; I35.8 Other nonrheumatic aortic valve disorders; E55.9 Vitamin D deficiency, unspecified; I44.0 Atrioventricular block, first degree; Z79.82 Long term (current) use of aspirin; Z79.84 Long term (current) use of oral hypoglycemic drugs; Z79.899 Other long term (current) drug therapy; Z85.51 Personal history of malignant neoplasm of bladder; Z86.010 Personal history of colon polyps; Z98.49 Cataract extraction status, unspecified eye; Z87.891 Personal history of nicotine dependence; Z85.828 Personal history of other malignant neoplasm of skin

== ENCOUNTER → 2019-11-24 | Outpatient (CLI) | payer MEDICARE, OTHER ==
[~2019-11-24] MED LIST changes: +ASPI81TAEC PO; +COSO1SOL3 OD; +MAGN400T2 PO; +PRAV1TAB39 PO
[2019-11-24 13:59] LABS: HEMATOCRIT 35.1 % (42.0-52.0); HEMOGLOBIN 11.4 g/dl (13.5-17.5); MEAN CORPUSCULAR HEMOGLOBIN 32.2 pg (27.0-33.0); MEAN CORPUSCULAR HGB CONC 32.5 g/dl (32.0-36.5); MEAN CORPUSCULAR VOLUME 99.2 fl (80.0-96.0); PLATELET COUNT, AUTOMATED 260 10^3/uL (150-450); RED BLOOD COUNT 3.54 10^6/uL (4.30-6.10); WHITE BLOOD COUNT 8.1 10^3/uL (4.0-10.0)
[2019-11-24 14:00] LABS: APPEARANCE, URINE CLEAR (CLEAR); BACTERIA, URINE AUTO 1+ (NEGATIVE); BILIRUBIN, URINE AUTO NEGATIVE (NEGATIVE); BLOOD, URINE BLOOD NEGATIVE (NEGATIVE); COLOR, URINE YELLOW (YELLOW); GLUCOSE, URINE (UA) AUTO NEGATIVE (NEGATIVE); KETONE, URINE AUTO NEGATIVE (NEGATIVE); LEUKOCYTE ESTERASE, URINE AUTO NEGATIVE (NEGATIVE); NITRITE, URINE AUTO NEGATIVE (NEGATIVE); PROTEIN, URINE AUTO NEGATIVE (NEGATIVE); RBC, URINE AUTO 0 /HPF (0-3); SPECIFIC GRAVITY URINE AUTO 1.015 (1.002-1.035); SQUAMOUS EPITHELIAL CELL UR AU 0 /HPF (0-6); UROBILINOGEN, URINE AUTO 0.2 mg/dL (0.0-2.0); WBC, URINE AUTO 1 /HPF (0-3)
[2019-11-24 14:20] LABS: HEMOGLOBIN A1c 7.7 %
[2019-11-24 14:39] LABS: ALBUMIN 3.1 GM/DL (3.2-5.2); ALT/SGPT 12 U/L (12-78); BILIRUBIN,TOTAL 1.1 MG/DL (0.2-1.0); BLOOD UREA NITROGEN 25 MG/DL (7-18); CALCIUM LEVEL 9.1 MG/DL (8.8-10.2); CARBON DIOXIDE LEVEL 29 MEQ/L (21-32); CHLORIDE LEVEL 105 MEQ/L (98-107); CREATININE, URINE 81.5 MG/DL; GLOMERULAR FILTRATION RATE > 60.0 (>35); GLUCOSE, FASTING 130 MG/DL (70-100); MAGNESIUM LEVEL 1.8 MG/DL (1.8-2.4); MAU/CREAT RATIO 143.5 MCG/MG (0.0-30.0); POTASSIUM SERUM 4.1 MEQ/L (3.5-5.1); SODIUM LEVEL 141 MEQ/L (136-145); THYROID STIMULATING HORMONE 0.508 uIU/ML (0.358-3.740); TOTAL PROTEIN 6.1 GM/DL (6.4-8.2)
== END ==
LOC: M PLALAB 11:02
PROVIDERS: ATTEND Internal Medicine
DX: I10 Essential (primary) hypertension (principal); E11.9 Type 2 diabetes mellitus without complications; E04.1 Nontoxic single thyroid nodule; Z85.51 Personal history of malignant neoplasm of bladder